=== PATIENT | female | born 1935 | race Caucasian/White ===

== ENCOUNTER 2018-01-06 17:28 | Inpatient (IN) | payer MEDICARE, OTHER ==
[~2018-01-06] VITALS: Ht 154.9 cm; Wt 59.9 kg
[~2018-01-06 17:28] MED LIST: ALTACE10 MG PO; ANTIVERT25 MG PO; APAP500 PO; ARTIFICIAL TEAR15 M1 OPHTHALMIC; ASPERCREME 1141.7 GM TP; ASPERCREME1 EACH TOP; ASPIR 8181 MG PO; ATIVAN0.5 MG PO; B12INJ IM; BIOFREEZE118 ML TOP; BIOFREEZE118 ML TP; BISACODYL SUPP10 MG RECTAL; CIPRO250 M1 PO; COREG3.125 MG PO; DEXAMETHASONE 0.5 M1 OP; DOK100 MG PO; IRON325 PO; KEFLEX500 M1 PO; LEXAPRO 10 MG T10 M1 PO; LIPITOR 20 MG T20 M1 PO; MAGOX 400400 MG PO; MAPAP325 MG PO; MAPAP500 MG PO; MECLIZINE HCL12.5 MG PO; MUCINEX600 MG PO; NAMENDA 5 MG TAB5 M1 PO; NEURONTIN 300300 M1 PO; NORCO 5-325 TA1 EACH PO; OMEPRAZOLE 20 M20 M1 PO; ONDANSETRON HCL4 M2 PO; OXYBUTYNIN 5 MG5 M2 PO; OYSTER SHELL 51 EACH PO; OYSTER SHELL C1 EA14 PO; PLAVIX 75 MG TA75 M1 PO; PREDNISONE 5 MG5 M1 PO; PROTONIX40 M1 PO; RAMIPRIL2.5 MG PO; RESTASIS1 EACH OPHTHALMIC; TUMS PO; VENTOLIN HFA 1818 GM INH; VITAMIN D5000 UNIT PO; ZANTAC 150MG T150 MG PO; ZOFRAN ODT4 MG PO
[2018-01-06 17:58] LABS: HEMATOCRIT 31.9 % (37.0-47.0); HEMOGLOBIN 9.8 gm/dL (12.0-15.0); MCH 26.1 pg (26.0-34.0); MCHC 30.6 g/dL (28.0-37.0); MCV 85.3 fL (80.0-100.0); MPV 8.3 fl. (7.2-11.1); NUCLEATED RBCS 0 /100WBC; PLATELET COUNT* 292 thou/uL (150-400); RBC 3.73 mil/uL (4.20-5.00); RDW-CV 19.3 % (10.5-14.5); WBC 9.6 thou/uL (4.0-11.0)
[2018-01-06 18:04] LABS: ANION GAP 2 mmol/L (7-16); BUN 38 mg/dL (7-18); CALCIUM 10.4 mg/dL (8.5-10.1); CHLORIDE 103 mmol/L (98-107); CO2 35 mmol/L (21-32); CREATININE 0.7 mg/dL (0.6-1.3); GLUCOSE 96 mg/dL (70-99); POTASSIUM 4.5 mmol/L (3.5-5.1); SODIUM 140 mmol/L (136-145)
[2018-01-06 18:07] LABS: APTT 28.5 Seconds (25.0-31.3); PROTIME 10.2 Seconds (9.20-11.50)
[2018-01-06 18:11] LABS: ALBUMIN 2.5 g/dL (3.4-5.0); ALKALINE PHOSPHATASE 71 U/L (46-116); SGOT 19 U/L (15-37); SGPT 23 U/L (30-65); TOTAL BILIRUBIN 0.2 mg/dL (<0.1-1.0); TOTAL PROTEIN 7.1 g/dL (6.4-8.2); TROPONIN-I LEVEL <0.06 ng/mL (<0.06)
[2018-01-06 18:32] LABS: ABSOLUTE EOSINOPHILS 0.1 thou/uL (0.0-0.7); ABSOLUTE LYMPHOCYTES 0.9 thou/uL (0.8-5.3); ABSOLUTE MONOCYTES 0.7 thou/uL (0.0-1.2)
[2018-01-06 18:34] LABS: ANISOCYTOSIS 1+; MICROCYTES Occasional; PLATELET ESTIMATE ADEQUATE
[2018-01-06 18:44] LABS: POC CA IONIZED 5.4 mg/dL (4.5-5.3); POC CREATININE 0.7 mg/dL (0.6-1.3); POC HEMOGLOBIN 10.5 g/dL (12.0-17.0); POC POTASSIUM 4.5 mmol/L (3.5-4.9)
[2018-01-06] MEDS ORDERED: MELATONIN3 MG PO (19:08)
[2018-01-06] MEDS ORDERED: IBUPROFEN 200200 M1 PO (19:09)
[2018-01-06] MEDS ORDERED: GAVILAX8.5 GM (19:09)
[2018-01-06] MEDS ORDERED: ARTIFICIAL TEA1 EACH OPHTHALMIC (19:09)
[2018-01-06] MEDS ORDERED: ONDANSETRON HCL4 M2 PO (19:09)
[2018-01-06] MEDS ORDERED: ENSURE PLUS237 ML PO (19:10)
[2018-01-06] MEDS ORDERED: JUVEN PACKET1 EAC1 PO (19:10)
[2018-01-06] MEDS ORDERED: IRON325 M1 PO (19:10)
[2018-01-06 20:50] VITALS: BP 128/65
[2018-01-06] MEDS ORDERED: CENTRUM SILVER1 EAC4 PO (22:08)
[2018-01-06 22:22] VITALS: BP 133/55
[2018-01-07] VITALS: BP 141/69
[2018-01-07 04:00] VITALS: BP 129/54
[2018-01-07 07:21] LABS: URINE BILIRUBIN NEGATIVE (Negative); URINE BLOOD 3+ (Negative); URINE CLARITY CLEAR; URINE COLOR YELLOW; URINE GLUCOSE-RANDOM NEGATIVE (Negative); URINE KETONES NEGATIVE (Negative); URINE LEUKOCYTES 2+ (Negative); URINE NITRITE POSITIVE (Negative); URINE PROTEIN TRACE (Negative); URINE SPECIFIC GRAVITY <= 1.005 (1.005-1.030); URINE UROBILINOGEN 0.2 E.U./dl (0.2-1.0)
[2018-01-07 07:34] LABS: SQUAMOUS 0-3 Few /LPF (0-3)
[2018-01-07 07:35] LABS: BACTERIA >30 Many /HPF (None Seen); CASTS None Seen /LPF (None Seen); CRYSTALS None Seen /LPF (None Seen); MUCUS 0-3 Light strn/LPF (None Seen); URINE WBC 6-15 Few /HPF (0-5)
[2018-01-07 07:36] LABS: URINE RBC 3-10 Few /HPF (0-2)
[2018-01-07 08:30] VITALS: BP 163/58
--- NOTE | 2018-01-07 10:26 | EKG ---
[place] [address] ELECTROCARDIOGRAM REPORT Name: MITUL PLAZA Room: [address] IN [facility].#: [id number] Admission: 01/06/18 Attend Phys: Moo Redd MD Discharge: Date of : 37 Report #: [id number] THIS REPORT FOR: //name// [facility] ED Test Date: 2018-01-06 Test Time: 18:31:03 Pat Name: MITUL PLAZA Department: Room: Gender: Adjustment Examiner: [place] : 1935 Requested By: Morales Turner Order Number: [id number] MD: Odell Arenas Measurements Intervals [place] Rate: 82 P: 47 CA: 144 QRS: -33 QRSD: 98 T: -24 QT: 384 QTc: 449 Interpretive Statements Sinus rhythm poor r wave progression Inferior infarct, old Baseline wander in lead(s) V2 Compared to ECG 05/23/2017 22:00:41 no change Electronically Signed On 01-07-2018 10:26:02 CDT by Odell Arenas [email or web address] <ELECTRONICALLY SIGNED> By: Odell Arenas MD, [facility] 01/07/18 1026 1831 1831 Odell Arenas MD, [facility] /EPI
[2018-01-07 12:05] VITALS: BP 139/55
[2018-01-07 16:34] VITALS: BP 124/68
[2018-01-07 20:00] VITALS: BP 133/67
[2018-01-08] VITALS: BP 121/64
[2018-01-08 04:00] VITALS: BP 153/52
[2018-01-08 05:04] LABS: HEMATOCRIT 28.4 % (37.0-47.0); HEMOGLOBIN 8.9 gm/dL (12.0-15.0); MCH 26.8 pg (26.0-34.0); MCHC 31.2 g/dL (28.0-37.0); MCV 85.8 fL (80.0-100.0); MPV 8.4 fl. (7.2-11.1); RBC 3.31 mil/uL (4.20-5.00); RDW-CV 19.1 % (10.5-14.5)
[2018-01-08 05:27] LABS: ALBUMIN 2.2 g/dL (3.4-5.0); CALCIUM 8.6 mg/dL (8.5-10.1); CREATININE 0.5 mg/dL (0.6-1.3); MAGNESIUM 1.8 mg/dL (1.8-2.4); POTASSIUM 3.7 mmol/L (3.5-5.1); TOTAL BILIRUBIN 0.2 mg/dL (<0.1-1.0); TOTAL PROTEIN 5.6 g/dL (6.4-8.2)
[2018-01-08 09:30] VITALS: BP 114/50
[2018-01-08 12:00] VITALS: BP 110/42
[2018-01-08 15:44] VITALS: BP 142/52
[2018-01-08 20:00] VITALS: BP 90/30
[2018-01-09] VITALS (9 sets, daily range): BP systolic 117–163; BP diastolic 39–78
[2018-01-09 05:12] LABS: HEMATOCRIT 28.8 % (37.0-47.0); HEMOGLOBIN 8.8 gm/dL (12.0-15.0); MCH 26.5 pg (26.0-34.0); MCHC 30.6 g/dL (28.0-37.0); MCV 86.8 fL (80.0-100.0); MPV 8.2 fl. (7.2-11.1); RBC 3.32 mil/uL (4.20-5.00); RDW-CV 19.3 % (10.5-14.5); WBC 4.9 thou/uL (4.0-11.0)
[2018-01-09 05:57] LABS: CALCIUM 9.1 mg/dL (8.5-10.1); CREATININE 0.4 mg/dL (0.6-1.3); MAGNESIUM 2.1 mg/dL (1.8-2.4); POTASSIUM 3.6 mmol/L (3.5-5.1)
[2018-01-09 11:36] LABS: CHOLESTEROL 159 mg/dL (<200); HDL CHOLESTEROL 38 mg/dL (>40); LDL CHOLESTEROL 106 mg/dL (<100); TC:HDL 4.2 Ratio (Not establshd); TRIGLYCERIDE 78 mg/dL (<150); VLDL 16 mg/dL (<40)
[2018-01-09 11:37] LABS: SERUM ASSESSMENT Clear
[2018-01-09 20:25] LABS: % SATURATION 13 % (20-39); IRON 26 ug/dL (50-175)
[2018-01-10] VITALS (7 sets, daily range): BP systolic 106–163; BP diastolic 50–74
--- NOTE | 2018-01-10 09:40 | EEG ---
[address] [address] EEG STUDY REPORT Name: MIGUEL PLAZASOHEILA Worley Room: [address] IN .R.#: [id number] Admission: 01/06/18 Attend Phys: Moo Redd MD Discharge: Date of : 37 Report #: [id number] THIS REPORT FOR: //name// CC: Moo Redd [facility] physician/PCP DATE OF SERVICE: 01/07/2018 This patient is being evaluated for stroke-like symptoms as well as a facial tremor. EEG was done by placing the electrodes by standard 10-20 system of electrode placement. Both referential and sequential montages were used for recording. Background activity in this patient's EEG is about 7 Hz and 30 microvolt. It is a symmetrical activity. The patient went to sleep that is associated with bilaterally symmetrical sleep spindle and vertex sharp waves. Throughout the record, no active epileptiform activity was noticed. IMPRESSION: This is a moderately abnormal EEG because it is disorganized and poorly formed. That is a nonspecific abnormality, which can occur with dementia, encephalopathy, effect of psychotropic medication, etc. Clinical correlation is recommended. <ELECTRONICALLY SIGNED> By: Tim Mcnamara MD 01/10/18 0940 0828 1622Pafia Mcnamara MD /nt
--- NOTE | 2018-01-10 09:40 | CON ---
[address] [address] CONSULTATION Name: MITUL PLAZA Room: [address] IN [facility].[place].#: [id number] Admission: 01/06/18 Attend Phys: Moo Redd MD Discharge: Date of : 37 Report #: [id number] THIS REPORT FOR: //name// CC: Moo Redd [facility] physician/PCP DATE OF SERVICE: 01/06/2018 HISTORY OF PRESENT ILLNESS: This is an 82-year-old female patient who was seen by me as a stroke protocol. I talked to Dr. Turner, our Emergency Room physician, who originally called me and I subsequently talked to Dr. Rubio, who took over this patient. I called the patient's son and had a long talk with him. This patient presented with what they described as stroke-like symptoms. They had initially said that it happened 1 hour prior to admission. The more history I can take, the time of onset is not clear at all in this patient. This is partly because the patient has pretty significant baseline problems. Some of the history indicates that she may have even passed out. REVIEW OF SYSTEMS: Pretty extensive. This patient has dementia. She usually does not know what month and what day it is. She does not look that much different from that perspective. She does not appear to be aphasic. She had multiple falls. She had a back surgery, which gave her footdrop. She was still able to move the right side. She has a pretty deformed right wrist area. She has a history of subarachnoid and intraparenchymal hemorrhage and she was admitted to [facility]. She was not walking even before that, but after the intraparenchymal hemorrhage and subarachnoid hemorrhage and intracerebral hemorrhage, she has not been able to walk and is in a wheelchair according to the son. Even before that she was preferring wheelchair, but they were trying to push her to do some physical therapy. From all indication, it looks like with the dementia and a very difficult time ambulating, her quality of the life is very poor. A 14-point review of system was carried out as much as I could and it is summarized as above. PAST MEDICAL HISTORY: Positive for intracerebral bleed and subarachnoid hemorrhage. FAMILY HISTORY: Negative for any intracranial hemorrhage. SOCIAL HISTORY: She lives in a jail. PHYSICAL EXAMINATION: Indicates she is alert. She is responsive. She can follow simple commands most of the time. I do not think she is markedly aphasic. Cranial nerve examination 2-12 may indicate some facial weakness on the right side. She can still move some. She is weak in the right upper and right lower extremity, but she is to some extent weak in all 4 extremities. I could not do the sensory system examination. [place] [address] CONSULTATION Name: MITUL PLAZA Room: [address] IN [facility]#: [id number] Admission: 01/06/18 Attend Phys: Moo Redd MD Discharge: Date of : 37 Report #: [id number]. Cardiac and respiratory examinations appear noncontributory. LABORATORY DATA: I reviewed this patient's workup, which was done. She had a CT angio done, which demonstrated pretty significant carotid stenosis on both sides. Her calcium was high the last time and it is high now. There was some suspicion of renal cell carcinoma in this patient. IMPRESSION: This patient's symptoms are suggestive of stroke in the left cerebral hemisphere with a severe carotid disease, very poor quality of the life, and pretty significant dementia and severe ambulation difficulty. She had a previous history of intracranial hemorrhage. I talked to the son in great detail. I talked to him the option. We discussed tPA. Intracranial hemorrhage is a lifetime contraindication for giving tPA. It is tough to tell whether this patient's hemorrhage was because of trauma or anything like amyloid angiopathy. Still I gave that option to them. We also talked about the management of the carotid stenosis, which is going to be difficult because she will require surgeries on both sides. After discussing all of it with the patient's son, the aim was to just be very conservative and carry out only very conservative and comfort care in this patient. I asked the Emergency Room physician to give this patient some fluids and give an aspirin. Otherwise, no heroic measures will be done in this patient. More than 50 minutes of time was spent taking care of this patient today and majority of that time was spent counseling the family and coordinating her care. <ELECTRONICALLY SIGNED> By: Tim Mcnamara MD 01/10/1840 20 45Tim Mcnamara MD /alpa
[2018-01-11] VITALS (7 sets, daily range): BP systolic 106–152; BP diastolic 45–76
[2018-01-11 14:20] LABS: HEMATOCRIT 30.2 % (37.0-47.0); HEMOGLOBIN 9.4 gm/dL (12.0-15.0); MCH 26.4 pg (26.0-34.0); MCHC 31.2 g/dL (28.0-37.0); MCV 84.7 fL (80.0-100.0); MPV 7.5 fl. (7.2-11.1); RBC 3.57 mil/uL (4.20-5.00); RDW-CV 19.4 % (10.5-14.5); WBC 6.4 thou/uL (4.0-11.0)
[2018-01-11] MEDS ORDERED: CELEXA10 MG PO (16:06)
[2018-01-11] MEDS ORDERED: MAPAP325 MG PO (16:10)
[2018-01-11] MEDS ORDERED: MIRALAX17 GM PO (16:11)
[2018-01-11] MEDS ORDERED: PLAVIX 75 MG TA75 MG PO (16:12)
[2018-01-11] MEDS ORDERED: VENTOLIN HFA 1818 GM INH (16:16)
[2018-01-11] MEDS ORDERED: KEFLEX500 M1 PO (16:24)
--- NOTE | 2018-01-18 16:59 | CON ---
[address] [address] CONSULTATION Name: MITUL PLAZA Room: [address] IN .R.#: [id number] Admission: 01/06/18 Attend Phys: Moo Redd MD Discharge: 01/11/18 Date of : 37 Report #: [id number] THIS REPORT FOR: //name// CC: Moo Redd [facility] physician/PCP DICTATED BY: Sandra TORRES DATE OF SERVICE: 01/10/2018 Please note at the time of this dictation, the patient was seen and physically examined by myself. REASON FOR CONSULTATION: Anemia. HISTORY OF PRESENT ILLNESS: This is an 82-year-old female who presented to the Emergency Room after they noted at the nursing facility that she had some right-sided facial droop for about 1 hour and that she did have some right-sided weakness of her upper and lower extremity and was leaning to one side. The patient was noted to have possible stroke and was fully admitted. At the time of admission, the patient's hemoglobin was 9.8. At the time of this consultation, the patient's hemoglobin is 8.8. In talking to the patient, she states she has been anemic all of her life. Her last endoscopy studies were back in [place], [place] which has been several years ago she states. She denies any nausea, vomiting, abdominal pain or any overt bleeding that has been noted. She states her bowels move about every other day. They are soft and formed. There is no bright red blood or any melena noted. Her weight has been fairly stable. ALLERGIES: TETRACYCLINE, ADHESIVE TAPE, MYELOGRAM, MSG. MEDICATIONS: From home include aspirin, prednisone, Neurontin, Restasis, Antivert, Mag-Ox, omeprazole, vitamin D, Tums, docusate, Namenda, Lexapro, Ventolin, melatonin, MiraLax, Advil, Zofran, dextran, iron supplement. PAST MEDICAL HISTORY: Subarachnoid hemorrhage in 2017, hypertension, GERD, hyperlipidemia, neuralgia. PAST SURGICAL HISTORY: Negative. FAMILY HISTORY: Noncontributory. SOCIAL HISTORY: The patient is a resident at [facility]. REVIEW OF SYSTEMS: Twelve-point review [place] [address] CONSULTATION Name: MELAMITUL J Room: [address]#: [id number] Admission: 01/06/18 Attend Phys: Moo Redd MD Discharge: 01/11/18 Date of : 37 Report #: [id number] except what is mentioned in the HPI. PHYSICAL EXAMINATION: VITAL SIGNS: Temperature 37, pulse 76, respirations 16, blood pressure 127/55. HEART: Regular rate and rhythm. NEUROLOGY: It was felt by Neurology that she likely had a left cerebral hemispheric stroke and that has severe carotid disease with also significant dementia as well. LABORATORY DATA: Hemoglobin now 8.8, hematocrit 28.8, white count is 4.9, platelets 186, MCV is 86.8. Sodium 144, potassium 3.6, chloride 111, CO2 of 29, BUN is 13, creatinine 0.4, GFR is 153 and a glucose of 82. IMPRESSION: 1. Anemia, asymptomatic; per patient history of anemia "all of her life". 2. Anticoagulant therapy, Plavix and aspirin. 3. Cerebrovascular accident, recent left hemispheric stroke. 4. Dementia. PLAN: 1. We will check a ferritin level. 2. Further recommendations to be made after Dr. Siddiqui has reviewed the patient's chart and ferritin is back. Thank you for allowing us to participate in this patient's care. Please do not hesitate to call with any questions in regard to this consult. ADDENDUM The patient with history of CVA who also has normocytic anemia. There is no evidence of hematochezia or melena. We would recommend upper endoscopy once the patient is outside the stroke window. We will continue the patient's hemoglobin and obtain B12, folic acid and iron study. We will replace these if they are low. <ELECTRONICALLY SIGNED> By: Bolivar Siddiqui MD 01/18/18 1659 1433 1841Bolivar Siddiqui MD /nt
== END 2018-01-11 18:55 | DRG 64 ==
LOC: M.ERS 17:28 → M.2W 19:43 → M.TBA-ER 19:43 → M.2W 20:54
PROVIDERS: Emergency Medicine Emergency Medical Services; Family Medicine; Nurse Practitioner Adult Health; Psychiatry & Neurology Neuromuscular Medicine; ADMIT Internal Medicine
DX: I63.231 Cerebral infarction due to unspecified occlusion or stenosis of right carotid arteries (principal); R53.2 Functional quadriplegia; E43 Unspecified severe protein-calorie malnutrition; K92.2 Gastrointestinal hemorrhage, unspecified; I10 Essential (primary) hypertension; K21.9 Gastro-esophageal reflux disease without esophagitis; E78.5 Hyperlipidemia, unspecified; D64.9 Anemia, unspecified; F03.90 Unspecified dementia, unspecified severity, without behavioral disturbance, psychotic disturbance, mood disturbance, and anxiety; Z66 Do not resuscitate; R29.810 Facial weakness; J84.10 Pulmonary fibrosis, unspecified; Z88.1 Allergy status to other antibiotic agents; Z88.8 Allergy status to other drugs, medicaments and biological substances; Z91.048 Other nonmedicinal substance allergy status; Z79.899 Other long term (current) drug therapy; Z79.82 Long term (current) use of aspirin; Z79.02 Long term (current) use of antithrombotics/antiplatelets

== ENCOUNTER 2018-02-06 01:59 | Inpatient (IN) | payer MEDICARE ==
[~2018-02-06] VITALS: Ht 157.5 cm; Wt 53.5 kg
[~2018-02-06 01:59] MED LIST changes: +ARTIFICIAL TEA1 EACH OPHTHALMIC; +CELEXA10 MG PO; +CENTRUM SILVER1 EAC4 PO; +ENSURE PLUS237 ML PO; +GAVILAX8.5 GM; +IBUPROFEN 200200 M1 PO; +IRON325 M1 PO; +JUVEN PACKET1 EAC1 PO; +MELATONIN3 MG PO; +MIRALAX17 GM PO; +PLAVIX 75 MG TA75 MG PO
[2018-02-06 02:35] VITALS: BP 97/58
[2018-02-06 02:35] LABS: ABSOLUTE BASOPHILS 0.1 thou/uL (0.0-0.2); ABSOLUTE EOSINOPHILS 0.2 thou/uL (0.0-0.7); ABSOLUTE LYMPHOCYTES 1.2 thou/uL (0.8-5.3); ABSOLUTE MONOCYTES 0.8 thou/uL (0.0-1.2); BASOPHILS 0.6 %; EOSINOPHILS 2.8 %; HEMATOCRIT 25.4 % (37.0-47.0); HEMOGLOBIN 7.9 gm/dL (12.0-15.0); LYMPHOCYTES 14.1 %; MCH 26.6 pg (26.0-34.0); MCV 85.7 fL (80.0-100.0); MONOCYTES 9.9 %; MPV 7.3 fl. (7.2-11.1); NUCLEATED RBCS 0 /100WBC; PLATELET COUNT* 235 thou/uL (150-400); POLYS 72.6 %; RBC 2.96 mil/uL (4.20-5.00); RDW-CV 19.3 % (10.5-14.5); WBC 8.3 thou/uL (4.0-11.0)
[2018-02-06 02:40] LABS: INR 1.1; PROTIME 10.4 Seconds (9.20-11.50)
[2018-02-06 02:45] LABS: CALCIUM 9.1 mg/dL (8.5-10.1); CREATININE 0.6 mg/dL (0.6-1.3); POTASSIUM 3.8 mmol/L (3.5-5.1)
[2018-02-06 02:46] LABS: ALBUMIN 2.1 g/dL (3.4-5.0); TOTAL BILIRUBIN 0.2 mg/dL (<0.1-1.0); TOTAL PROTEIN 5.9 g/dL (6.4-8.2)
[2018-02-06 02:55] LABS: URINE BLOOD 3+ (Negative); URINE CLARITY TURBID; URINE COLOR BROWN
[2018-02-06 02:57] LABS: URINE NITRITE-REFLEX POSITIVE (Negative)
[2018-02-06 03:02] LABS: URINE REDUCING SUBSTANCE NEGATIVE (Negative)
[2018-02-06 03:04] LABS: ICTOTEST (BILI CONFIRMATORY) Negative (Negative)
[2018-02-06 03:05] LABS: URINE PROTEIN 3+ (Negative)
[2018-02-06 03:06] LABS: FINE GRANULAR CASTS 4-10 Moderate /LPF (None Seen); SQUAMOUS 0-3 Few /LPF (0-3)
[2018-02-06 03:07] LABS: BACTERIA-REFLEX >30 Many /HPF (None Seen); URINE RBC >20 Many /HPF (0-2); URINE WBC-REFLEX 6-15 Few /HPF (0-5)
[2018-02-06 03:08] LABS: AMORPHOUS URATES Many /LPF (None Seen)
--- NOTE | 2018-02-06 03:20 | NUR ---
BLADDER IRRIGATION NOT RUNNING. PATIENT WITH FLUID RUNNING AROUND MEATUS. [address] POSADA IRRIGATED BY HAND WITH 1000 ML TO DISLODGE CLOTS
[2018-02-06 06:00] VITALS: BP 149/84
[2018-02-06 06:51] VITALS: BP 126/54
--- NOTE | 2018-02-06 07:11 | NUR ---
PATIENT ARRIVED FROM ER ALERT BUT CONFUSED. BED ALARM ON. ASSESSMENT CHARTED.
[2018-02-06 07:46] LABS: HEMOGLOBIN 7.7 gm/dL (12.0-15.0)
[2018-02-06 08:05] VITALS: BP 117/70
[2018-02-06 15:31] VITALS: BP 131/44
--- NOTE | 2018-02-06 19:50 | NUR ---
PATIENT REMAINED ALERT AND ORIENTED TO SELF. VERY CONFUSED, ASKED MULTIPLE TIMES WHERE SHE WAS AND WHAT HAD HAPPENED. PATIENT ALSO ASKED SEVERAL TIMES ABOUT FAMILY KNOWING SHE IS HERE EVEN AFTER FAMILY CAME TO VISIT. CBI CONTINUED. WENT THROUGH 3 BAGS OF FLUIDS PLUS MANUAL IRRIGATION Q.2. URINE WENT FROM BRIGHT RED TO CLEAR THROUGHOUT SHIFT. CLEAR LIQUIDS, PATIENT ATE MAYBE 2 BITES TOTAL TODAY. NO NAUSEA AND VOMITING. PATIENT DENIED PAIN THROUGHOUT SHIFT. IV CLEAN, FLUIDS INFUSING. COMPLETED HOURLY ROUNDING. CALL LIGHT WITHIN REACH. WILL CONTINUE TO MONITOR.
[2018-02-06 20:45] VITALS: BP 113/59
[2018-02-07 00:32] VITALS: BP 124/67
[2018-02-07 04:24] LABS: HEMATOCRIT 24.1 % (37.0-47.0); HEMOGLOBIN 7.3 gm/dL (12.0-15.0); MCH 26.4 pg (26.0-34.0); MCHC 30.3 g/dL (28.0-37.0); MCV 87.3 fL (80.0-100.0); RBC 2.76 mil/uL (4.20-5.00); RDW-CV 19.2 % (10.5-14.5); WBC 5.4 thou/uL (4.0-11.0)
[2018-02-07 04:28] VITALS: BP 115/94
[2018-02-07 04:55] LABS: CALCIUM 8.4 mg/dL (8.5-10.1); CREATININE 0.5 mg/dL (0.6-1.3); MAGNESIUM 1.7 mg/dL (1.8-2.4); POTASSIUM 3.7 mmol/L (3.5-5.1)
--- NOTE | 2018-02-07 05:24 | NUR ---
ALERT TO SELF ONLY. FREQUENTLY ASK WHERE SHE IS AND WHAT IS GOING ON. NO C/O PAIN OR NAUSEA. CONTINUES TO HAVE CBI RUNNING AT SLOW RATE WITH URINE SLIGHTLY PINK TINGED. NO CLOTS NOTED AT THIS TIME. IVF INFUSING WITHOUT DIFFICULTY. REMAINS ON BEDREST AT THIS TIME. BED ALARM ON. CALL LIGHT WITHIN REACH.
[2018-02-07 08:30] VITALS: BP 125/56
--- NOTE | 2018-02-07 11:35 | NUR ---
ASSUMED PT CARE AT 0730, FULL ASSESMENT DONE CHARTED. PT ALERT TO SELF ONLY, IS VERY FORGETFUL BUT PLEASANT. SHE C/O PAIN ALL OVER, TYLENOL GIVEN. PT HAS POSADA IN PLACE DRAINING CLEAR YELLOW URINE. DR JARA ORDERED FOR CONTINUOUS IRRIGATION TO STOP AND IRRIGATE ONCE PER SHIFT. PT ABLE TO TOLERATED REGULAR DIET. SPOKE TO PTS SON, UPDATED ON PLAN OF CARE. WOUND CARE CONSULT PLACED FOR COCCYX WOUND. PT TURNED Q2 HRS, FALL PRECAUTIONS IN PLACE, CALL LIGHT IN REACH. WILL CONTINUE WITH PLAN OF CARE.
[2018-02-07] MEDS ORDERED: BACTRIM DS TAB1 EACH PO (13:57)
--- NOTE | 2018-02-07 15:28 | NUR ---
WOUND NURSE: PATIENT SEEN FOR COCCYGEAL STAGE 2 PRESSURE ULCER. AFFECTED AREA MEASURES 1.0 X 1.0 X 0.2 CM. WOUND BED CONTAINS PINK NONGRANULATING TISSUE AND SCANT AMOUNT OF SEROUS DRAINAGE. BORDERED FOAM DRESSING PLACED OVER WOUND. PLAN TO CHANGE BORDERED FOAM EVERY 3 DAYS UNTIL RESOLVED.
--- NOTE | 2018-02-07 15:43 | NUR ---
PT.HAS DISCHARGE ORDERS TO RETURN TO LTC AT [facility] TODAY IF CT ABD/PELVIS IS NEGATIVE. NOTIFIED HOLLI/SERGEY. TOLD HER PT.HAS P.T.ORDERS BUT WOULD NOT HAVE 3 [place] STAY SHE JUST CAME IN YESTERDAY. SHE SAID THEY CAN BILL HER PART B FOR THERAPIES. WILL AWAIT CT RESULTS. CHRISTINA DEWEY AWARE AND WILL FAX DISCHARGE ORDERS AND H&P TO HOLL[facility]. CHART IS COPIED. MACO WILL ALSO CALL REPORT TO [facility] AND NOTIFY SON.
[2018-02-07 15:59] VITALS: BP 131/60
[2018-02-07 17:48] VITALS: BP 131/60
--- NOTE | 2018-02-07 19:05 | NUR ---
RECIEVED DISCHARGE ORDERS FROM DR LUA, SPOKE TO DR JARA AFTER CT DONE, HE IS OK WITH DISCHARGE TODAY, SPOKE TO PTS SON TO EDUCATE ON DISCHARGE. FAXED ORDERS TO Martín, SPOKE TO JOHN THE RN AND GAVE REPORT. POSADA IN PLACE AT DISCHARGE PER DR JARA. PT DISCHARGED WITH TRANSPORTATION AT APPROX 1905
== END 2018-02-07 19:05 | DRG 690 ==
LOC: M.ERS 01:59 → M.TBA-ER 05:08 → M.ORTHSURG 05:08
PROVIDERS: Emergency Medicine; Internal Medicine; ADMIT Family Medicine
DX: N30.91 Cystitis, unspecified with hematuria (principal); D62 Acute posthemorrhagic anemia; E44.0 Moderate protein-calorie malnutrition; F03.90 Unspecified dementia, unspecified severity, without behavioral disturbance, psychotic disturbance, mood disturbance, and anxiety; Z86.73 Personal history of transient ischemic attack (TIA), and cerebral infarction without residual deficits; Z88.1 Allergy status to other antibiotic agents; Z88.8 Allergy status to other drugs, medicaments and biological substances; Z87.891 Personal history of nicotine dependence; Z82.49 Family history of ischemic heart disease and other diseases of the circulatory system; Z79.82 Long term (current) use of aspirin; Z79.899 Other long term (current) drug therapy

== ENCOUNTER 2018-05-13 09:12 | Inpatient (IN) | payer MEDICARE, OTHER ==
[~2018-05-13] VITALS: Ht 165.1 cm; Wt 65.8 kg
[2018-05-13] VITALS (23 sets, daily range): BP systolic 53–164; BP diastolic 12–112
--- NOTE | ~2018-05-13 | CON ---
[address] [address] CONSULTATION Name: MITUL PLAZA Room: [address] IN M.R.#: [id number] Admission: 05/13/18 Attend Phys: Moo Redd MD Discharge: Date of : 36 Report #: [id number] THIS REPORT FOR: //name// CC[facility] The patient is in ICU bed 6. I am asked to see this 82-year-old woman at the request of Dr. Redd for acute kidney injury. CHIEF COMPLAINT: Mental status changes. HISTORY OF PRESENT ILLNESS: This elderly woman resides in a care home. She does have dementia. She is not able to provide me history. She was extremely hypotensive on arrival, and she had an elevated lactic acid. She has had some rapid respirations. She was assessed in the ED, a central line was placed. Her troponin was checked and was elevated. She has evidence of acute kidney injury and appears septic and was therefore admitted to the Intensive Care Unit. Brand catheter has just been placed. She has a very purulent urine. She is going to have an ART line placed. PAST MEDICAL HISTORY: She has had no record of prior acute renal failure. Creatinine has generally always been normal. She has had a CVA. She has some dementia. She has a history of hypercalcemia, hematuria, hypotension, UTI. She has had residual speech problems since her CVA. She has had ataxia, falls, anemia, GERD, hemiplegia and hemiparesis. FAMILY HISTORY: Not known. SOCIAL HISTORY: She is a former tobacco user. She stopped several years ago. Alcohol is not known as to whether she had any past usage at all. No recreational drug use is recorded anywhere. ALLERGIES: MYELOGRAM, PENICILLIN, TETRACYCLINE, ADHESIVE TAPE AND MSG. HOME MEDICATIONS: Included multiple meds, prednisone 5 mg daily, gabapentin 300 mg q.i.d., cyclosporine 1 drop b.i.d., magnesium oxide 400 mg daily, cholecalciferol vitamin D3 of 5000 units daily, calcium carbonate 500 mg daily, memantine 5 mg b.i.d. Dextran artificial tears ophthalmologic ally b.i.d., ferrous sulfate 325 mg daily, multivitamins with minerals 1 daily, citalopram 10 mg daily, acetaminophen 1-2 tablets q.4 p.r.n., polyethylene glycol 17 grams daily p.r.n., albuterol inhaler q.4 hours p.r.n., pantoprazole 40 mg daily, ascorbic acid 500 mg b.i.d., sennosides 8.6 mg b.i.d., aspirin 81 mg daily, meclizine 25 mg 1/2 p.r.n. dizziness, albuterol sulfate q.8 p.r.n. shortness of air, melatonin 3 mg at bedtime, ondansetron 4 mg q.4 p.r.n., ibuprofen [address] [place] [address] CONSULTATION Name: MITUL PLAZA Room: [address]#: [id number] Admission: 05/13/18 Attend Phys: Moo Redd MD Discharge: Date of : 36 Report #: [id number] q.8 p.r.n. for pain. Andrew packet daily, lactose-free food, with Ensure Plus 1 can q.i.d., clopidogrel 75 mg daily. REVIEW OF SYSTEMS: Not obtainable. PHYSICAL EXAMINATION: GENERAL: She is speaking, but is not tracking or able to answer questions and is speaking with someone not present. VITAL SIGNS: Show a temperature of 36.8, heart rate is 88-100, respirations 16. Blood pressure has been quite low, it was as low as 67/40 earlier, then came up to 102/67 and 53/23. She was certainly awake and appeared to have a higher BP than 53 systolic. O2 sat 2 liters O2 nasal cannula was 98%. HEENT: Atraumatic, normocephalic. NECK: Supple. CHEST: Shows diminished breath sounds, but what I hear is clear. HEART: S1, S2, no rubs. ABDOMEN: Soft, positive bowel sounds. A Brand catheter was placed. She has some turbid appearing urine, but she is draining about 50 mL so far. EXTREMITIES: No edema. Negative Homans. She has 1+ femoral pulses distally. Extremities are still perfused and warm. NEUROLOGIC: Cranial nerves, sensory, motor do not show any focal findings. LABORATORY DATA: Shows a white count of 14,800, up from 2400 earlier. Hemoglobin 7.4, down from 9.9. Hematocrit 24.5, down from 32.6. Platelets 121,000. Coags show a PT of 13.5, INR 1.3. PTT 41.1, fibrinogen 285. Urine is positive for protein, blood, 3+, leukocyte esterase and 10-30 wbc's. Culture is sent and pending. Blood gas showed a pH of 7.32, pCO2 of 35.2, pO2 of 84. This was on 2 liters O2 nasal cannula. Her sodium is 143, potassium 4.4, chloride 107, CO2 of 24, BUN and creatinine 48 and 2.5, glucose 83, calcium 8.8. Liver function studies are not increased. CK is 258. Troponin 0.07, albumin 2.0. IMAGING STUDIES: Included chest x-ray that showed right IJ catheter, no acute cardiopulmonary process noted on initial chest x-ray. IMPRESSION: 1. Acute kidney injury in the setting of hypotension and clinical urosepsis. 2. Septic shock. 3. Profound hypotension. 4. Dementia. 5. Cerebrovascular accident history with residual speech deficits. 6. Ataxia. 7. Weakness. 8. Anemia. 9. Gastroesophageal reflux disease. 10. History of hemiplegia [place] [address] CONSULTATION Name: MITUL PLAZA Room: [address] IN [facility].#: [id number] Admission: 05/13/18 Attend Phys: Moo Redd MD Discharge: Date of : 36 Report #: [id number] PLAN: The patient is receiving vigorous therapy, will be started on pressors, depending on what her blood pressure and vital signs do. She is receiving fluid. She has been cultured. She is receiving antibiotics. I would suspect that her renal function will improve if and when she does improve. She will be followed closely. By: [id number] Wan MD /nt
[~2018-05-13 09:12] MED LIST changes: +BACTRIM DS TAB1 EACH PO
[2018-05-13] MEDS ORDERED: ALBUTEROL2.5 MG/31 INH (09:39)
[2018-05-13] MEDS ORDERED: PROTONIX40 M4 PO (09:41)
[2018-05-13] MEDS ORDERED: SENNA8.6 MG PO (09:42)
[2018-05-13] MEDS ORDERED: VITAMINC500 PO (09:42)
[2018-05-13 10:41] LABS: APTT 34.4 Seconds (25.0-31.3); INR 1.2; PROTIME 11.9 Seconds (9.20-11.50)
--- NOTE | 2018-05-13 11:07 | NUR ---
CONSULTED TO PLACE IJ CENTRAL LINE. CONSENT MEDICAL NECCESSITY PER DR. HOBBS. RIGHT NECK ASSESSED WITH ULTRASOUND. RIGHT IJ IDENTIFIED. USING ULTRASOUND AND MAX BARRIER PRECAUTIONS TRIPLE LUMAN PLACED PER HOSPITAL POLICY. LINE TRIMMED AT 17CM AND ADVANCED TO HUB. STAT CHEST X-RAY ORDERED.
[2018-05-13 11:25] LABS: CALCIUM 8.8 mg/dL (8.5-10.1); CREATININE 2.5 mg/dL (0.6-1.3); POTASSIUM 4.4 mmol/L (3.5-5.1)
[2018-05-13 11:25] LABS: HEMOGLOBIN 9.9 gm/dL (12.0-15.0); MPV 8.3 fl. (7.2-11.1); RBC 3.54 mil/uL (4.20-5.00); WBC 2.4 thou/uL (4.0-11.0)
[2018-05-13 11:27] LABS: HEMATOCRIT 32.6 % (37.0-47.0); MCH 27.9 pg (26.0-34.0); MCHC 30.3 g/dL (28.0-37.0); NUCLEATED RBCS 0 /100WBC; PLATELET COUNT* 136 thou/uL (150-400); RDW-CV 18.1 % (10.5-14.5)
[2018-05-13 11:34] LABS: CK-MB MASS 1.5 ng/mL (<0.5-3.6); TOTAL BILIRUBIN 0.2 mg/dL (<0.1-1.0); TROPONIN-I LEVEL 0.07 ng/mL (<0.06)
[2018-05-13 12:03] LABS: ABSOLUTE LYMPHOCYTES 0.7 thou/uL (0.8-5.3); ABSOLUTE MONOCYTES 0.1 thou/uL (0.0-1.2); ABSOLUTE NEUTROPHILS 1.5 thou/uL (1.6-8.1); PLATELET ESTIMATE ADEQUATE
[2018-05-13 12:04] LABS: ANISOCYTOSIS 1+; POLYCHROMASIA 1+; TARGET CELLS 1+; TEARDROPS Occasional; TOXIC GRANULATION 4+
[2018-05-13 13:36] LABS: BE -7.1 mmol/L (-2 to +3); HCO3 18.1 mmol/L (22.0-26.0); PCO2 35.2 mmHg (35.0-45.0); pH 7.329 (7.340-7.450)
[2018-05-13 13:42] LABS: BASOPHILS 0.2 %; HEMATOCRIT 24.5 % (37.0-47.0); MCH 27.7 pg (26.0-34.0); MCHC 30.4 g/dL (28.0-37.0); MCV 91.1 fL (80.0-100.0); MONOCYTES 0.2 %; MPV 8.5 fl. (7.2-11.1); NUCLEATED RBCS 0 /100WBC; PLATELET COUNT* 121 thou/uL (150-400); POLYS 98.6 %; RBC 2.69 mil/uL (4.20-5.00); RDW-CV 17.4 % (10.5-14.5)
[2018-05-13 13:45] LABS: ABSOLUTE LYMPHOCYTES 0.1 thou/uL (0.8-5.3); ABSOLUTE NEUTROPHILS 14.6 thou/uL (1.6-8.1); HEMOGLOBIN 7.5 gm/dL (12.0-15.0); WBC 14.8 thou/uL (4.0-11.0)
[2018-05-13 13:52] LABS: MAGNESIUM 1.8 mg/dL (1.8-2.4); PHOSPHORUS* 4.4 mg/dL (2.5-4.9)
[2018-05-13 14:23] LABS: APTT 41.1 Seconds (25.0-31.3); INR 1.3; PROTIME 13.5 Seconds (9.20-11.50)
[2018-05-13 14:43] LABS: URINE BILIRUBIN NEGATIVE (Negative); URINE BLOOD TRACE (Negative); URINE CLARITY CLEAR; URINE COLOR YELLOW; URINE GLUCOSE-RANDOM NEGATIVE (Negative); URINE KETONES NEGATIVE (Negative); URINE NITRITE-REFLEX NEGATIVE (Negative); URINE PROTEIN 1+ (Negative); URINE UROBILINOGEN 0.2 E.U./dl (0.2-1.0)
[2018-05-13 14:44] LABS: URINE LEUKOCYTES-REFLEX 3+ (Negative)
[2018-05-13 14:46] LABS: CASTS None Seen /LPF (None Seen); CRYSTALS None Seen /LPF (None Seen); SQUAMOUS 0-3 Few /LPF (0-3); URINE RBC 3-10 Few /HPF (0-2); URINE WBC-REFLEX >25 Many /HPF (0-5)
--- NOTE | 2018-05-13 15:06 | NUR ---
1305 PATIENT RECEIVED PER BED FROM ER. SEE DOCUMENTED ASSESSMENT. PT IS ON SEPSIS PROTOCOL,CONFUSED.MOVES ARMS CONTINUALLY. INCONTINENT OF BOWEL AND BLADDER. TEMPERATURE POSADA PLACED AND ANESTHESIA NOTIFIED OF NEED FOR ARTERIAL LINE. SEEN BY DR GARCIA. UA SENT. BLOOD GLUCOSE LOW AND TREATED.
--- NOTE | 2018-05-13 16:49 | NUR ---
TYLENOL GIVEN FOR ELEVATED TEMPERATURE
--- NOTE | 2018-05-13 17:03 | EKG ---
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1935 Requested By: Morales Turner Order Number: [id number] MD: Odell Arenas Measurements Intervals [place] Rate: 73 P: 53 LA: 139 QRS: -30 QRSD: 101 T: -33 QT: 401 QTc: 442 Interpretive Statements Sinus rhythm Abnormal R-wave progression, early transition Inferior infarct, old Compared to ECG 01/06/2018 18:31:03 Myocardial infarct finding still present Electronically Signed On 05-13-2018 17:03:00 SHEET TESTER by Odell Arenas [email or web address] <ELECTRONICALLY SIGNED> By: Odell Arenas MD, FAC 05/13/18 1703 5 5 Odell Arenas MD, [facility] /EPI
--- NOTE | 2018-05-13 17:19 | NUR ---
PATIENT CHATTERS INCESSANTLY BUT DOES OCCASIONALLY MAKE SENSE. UNABLE TO BE SURE OF ART LINE PRESSURE LEFT ARM WAVES IN AIR CONTINUOUSLY. ALSO MONTIORING CUFF PRESSURE. SEE LEVOPHED TITRATION
--- NOTE | 2018-05-13 18:10 | NUR ---
REVIEWED [facility] WITH PRAKASH/VALENT[facility] AND FELISHA IN [place]
--- NOTE | 2018-05-13 18:10 | NUR ---
PATIENT WITH SOME PROGRESS TOWARDS GOALS. ADMITTED WITH SEVERE SEPSIS. MAINTAINING PRESSURE WITH LEVOPHED DRIP. ARTERIAL LINE AND CVP MONITORING IN PROGRESS. URINE IS FOUL. PATIENT REMAINS CONFUSED AND FAMILY STATES SHE IS ALWAYS CONFUSED WHEN SHE GETS A UTI. REVIEWED PLAN OF CARE AND GOALS WITH FAMILY [facility]. SEEN BY NEPHROLOGY. CARDIOLOGY CONSULT CALLED. FAMILY HAS VISITED
--- NOTE | 2018-05-13 18:16 | 2DMMODE ---
[place] [address] 2 D/M-MODE ECHOCARDIOGRAM Name: MELAMITUL Room: [address] IN M.R.#: [id number] Admission: 05/13/18 Attend Phys: Moo Redd, Discharge: Date of : 37 Date of Service: 05/13/18 1815 Report #: [id number] THIS REPORT FOR: //name// APPROVED REPORT Study performed: 05/13/2018 14:50:17 EXAM: Comprehensive 2D, Doppler, and color-flow Echocardiogram Patient Location: Bedside BSA: 1.60 HR: 93 bpm BP: 53/23 mmHg Other Information Study Quality: Good Indications Hypotension 2D Dimensions IVSd: 12.65 (7-11mm) LVOT Diam: 19.19 (18-24mm) LVDd: 44.09 mm PWd: 10.84 (7-11mm) Ascending Ao: 31.86 (22-36mm) LVDs: 31.00 (25-40mm) Aortic Root: 28.28 mm Volumes Left Atrial Volume (Systole) LA ESV Index: 22.10 mL/m2 Aortic Valve AoV Peak Xavier.: 1.09 m/s AO Peak Gr.: 4.73 mmHg LVOT Max P.10 mmHg AO Mean Gr.: 2.64 mmHg LVOT Mean P.68 mmHg LVOT Max V: 0.88 m/s AO V2 VTI: 15.70 cm LVOT Mean V: 0.59 m/s HARRISON (VTI): 2.35 cm2 LVOT V1 VTI: 12.73 cm Mitral Valve E/A Ratio: 0.64 MV Decel. Time: 252.78 ms MV E Max Xavier.: 0.46 m/s MV PHT: 73.31 ms MVA (PHT): 3.00 [place]2 [place] [address] 2 D/M-MODE ECHOCARDIOGRAM Name: MITUL PLAZA Room: [address] IN ..#: [id number] Admission: 05/13/18 Attend Phys: Moo Redd, Discharge: Date of : 37 Date of Service: 05/13/18 1815 Report #: [id number] TDI E/Lateral E': 4.18 E/Medial E': 4.60 Medial E' Xavier.: 0.10 m/s Lateral E' Xavier.: 0.11 m/s Pulmonary Valve PV Peak Xavier.: 0.80 m/s PV Peak Gr.: 2.56 mmHg Tricuspid Valve RAP Estimate: 5.00 mmHg TR Peak Gr.: 26.86 mmHg RVSP: 31.86 mmHg PA Pressure: 31.86 mmHg Left Ventricle The left ventricle is normal size. There is global hypokinesis. There is normal left ventricular wall thickness. Left ventricular systolic function is mildly decreased. LVEF is 40-45%. Grade I - abnormal relaxation pattern. Right Ventricle Right ventricle is mild to moderately dilated. The right ventricular systolic function is normal. Pacemaker lead is present in the right ventricle. Atria The left atrium size is normal. Right atrium is moderately dilated. Aortic Valve The aortic valve is normal in structure. Trace aortic regurgitation. There is no aortic valvular stenosis. Mitral Valve The mitral valve is normal in structure. Trace mitral regurgitation. No evidence of mitral valve stenosis. Tricuspid Valve The tricuspid valve is normal in structure. Mild tricuspid regurgitation. The RVSP is 25-30 mmHg. Pulmonic Valve The pulmonary valve is normal in structure. There is no pulmonic valvular regurgitation[place] [address] 2 D/M-MODE ECHOCARDIOGRAM Name: MITUL PLAZA Room: [address]#: [id number] Admission: 05/13/18 Attend Phys: Moo Redd, Discharge: Date of : 37 Date of Service: 05/13/18 1815 Report #: [id number] The aortic root is normal in size. IVC is normal in size and collapses >50% with inspiration. Pericardium There is no pericardial effusion. <Conclusion> The left ventricle is normal size. There is normal left ventricular wall thickness. Left ventricular systolic function is mildly decreased. LVEF is 40-45%. Grade I - abnormal relaxation pattern. Pacemaker lead is present in the right ventricle. Right atrium is moderately dilated. Right ventricle is mild to moderately dilated. Trace aortic regurgitation. Trace mitral regurgitation. Mild tricuspid regurgitation. The RVSP is 25-30 mmHg. IVC is normal in size and collapses >50% with inspiration. <ELECTRONICALLY SIGNED> By: Srikanth Carter MD, FACC 05/13/181814 14 14 Srikanth Carter MD, FACC /INF
[2018-05-14] VITALS (72 sets, daily range): BP systolic 76–157; BP diastolic 34–88
--- NOTE | 2018-05-14 00:27 | NUR ---
RECIEVED REPORT AND ASSUMED CARE OF PT AT 1915. PT CONFUSED AND RESTLESS, ORIENTED TO PERSON ONLY. PT FOLLOWS COMMANDS, UNINTELLIGABLE SPEECH. LEVOPHED INFUSING TO MAINTAIN MAP> 65. PT'S FAMILY HERE AT THAT TIME, LEFT EARLY IN SHIFT. PAGED DR LEHMAN AND REPORTED PT'S BLOOD PRESSURE, CVP READING AND TOTAL OF 3 LITERS NS GIVEN DURING DAY SHIFT. REPORTED BICARB DRIP INFUSING AND ORDER TO RUN NORMAL SALINE AT 80ML/HR PER DR GARCIA. ORDERS RECIEVED.
[2018-05-14 05:02] LABS: HEMATOCRIT 29.4 % (37.0-47.0); MCH 27.4 pg (26.0-34.0); MCHC 30.7 g/dL (28.0-37.0); MCV 89.2 fL (80.0-100.0); MPV 8.8 fl. (7.2-11.1); NUCLEATED RBCS 0 /100WBC; PLATELET COUNT* 121 thou/uL (150-400); RBC 3.29 mil/uL (4.20-5.00); RDW-CV 17.2 % (10.5-14.5)
[2018-05-14 05:05] LABS: WBC 40.1 thou/uL (4.0-11.0)
[2018-05-14 05:07] LABS: CALCIUM 8.5 mg/dL (8.5-10.1); CREATININE 2.1 mg/dL (0.6-1.3); POTASSIUM 4.3 mmol/L (3.5-5.1)
[2018-05-14 07:43] LABS: ABSOLUTE MONOCYTES 0.4 thou/uL (0.0-1.2); ABSOLUTE NEUTROPHILS 39.7 thou/uL (1.6-8.1); METAMYELOCYTES 2 %
[2018-05-14 07:45] LABS: PLATELET ESTIMATE DECREASED
[2018-05-14 07:46] LABS: TOXIC GRANULATION 1+
--- NOTE | 2018-05-14 10:23 | NUR ---
9740 ASSUMED CARE OF PATIENT. SEE DOCUMENTED ASSESSMENT. ARTERIAL LINE DAMPS AT TIMES.
--- NOTE | 2018-05-14 10:24 | NUR ---
3260 PATIENT WOULD NOT STOP TALKING WHILE ATTEMPTING PO INTAKE. STARTED CHOKING. ORAL SUCTIONED FOR SMALL AMOUNT OF THICK WHITE SECRETIONS. WILL KEEP NPO UNTIL DR GARCIA AWARE
--- NOTE | 2018-05-14 11:13 | NUR ---
1100 ARTIAL LINE HAD BEEN OOZING AND DAMPED. ART LINE DISCONTINUED PER ORDER DR GARCIA
--- NOTE | 2018-05-14 16:11 | NUR ---
ADDITIONAL MEDICAL HISTORY BROUGHT IN BY SON/DPOA.PLACED IN CHART
--- NOTE | 2018-05-14 17:50 | NUR ---
PATIENT MAKING PROGRESS TOWARDS GOALS. LEVOPHED TITRATED DOWN THOUGH NOT OFF. ARTERIAL LINE DISCONTINUED. URINE OUTPUT ADEQUATE.ORIENTED TO PERSON AND SOMETIMES PLACE. UNABLE TO TOLERATE DIET THIS MORNING. SPEECH THERAPY HAS BEEN CONSULTED. SEEN BY JEREMIAS. FAMILY HAS VISITED.
--- NOTE | 2018-05-14 18:15 | NUR ---
DISIMPACTED OF LARGE AMOUNT FORMED STOOL
[2018-05-15] VITALS (52 sets, daily range): BP systolic 67–142; BP diastolic 36–79
[2018-05-15 04:28] LABS: ABSOLUTE EOSINOPHILS 0.8 thou/uL (0.0-0.7); ABSOLUTE LYMPHOCYTES 0.3 thou/uL (0.8-5.3); ABSOLUTE MONOCYTES 0.6 thou/uL (0.0-1.2); ABSOLUTE NEUTROPHILS 16.1 thou/uL (1.6-8.1); EOSINOPHILS 4.4 %; HEMATOCRIT 26.3 % (37.0-47.0); HEMOGLOBIN 8.1 gm/dL (12.0-15.0); LYMPHOCYTES 1.8 %; MCH 27.5 pg (26.0-34.0); MCV 88.8 fL (80.0-100.0); MONOCYTES 3.6 %; MPV 9.7 fl. (7.2-11.1); NUCLEATED RBCS 0 /100WBC; PLATELET COUNT* 67 thou/uL (150-400); POLYS 90.2 %; RBC 2.96 mil/uL (4.20-5.00); RDW-CV 18.1 % (10.5-14.5)
[2018-05-15 04:45] LABS: ALBUMIN 1.5 g/dL (3.4-5.0); POTASSIUM 3.9 mmol/L (3.5-5.1); TOTAL BILIRUBIN 0.3 mg/dL (<0.1-1.0); TOTAL PROTEIN 5.1 g/dL (6.4-8.2)
--- NOTE | 2018-05-15 05:39 | NUR ---
PT PROGRESSING TOWARD GOALS. PT OFF LEVOPHED DRIP AT 2230. HEART RATE AND BLOOD PRESSURE WITHIN NORMAL LIMITS. O2 SAT > 94% ON O2 AT 2 LITERS . PT CONFUSED BUT FOLLOWS COMMANDS. WILL CONTINUE TO MONITOR CLOSELY.
[2018-05-15 06:44] LABS: WBC 17.8 thou/uL (4.0-11.0)
--- NOTE | 2018-05-15 09:32 | CON ---
[address] [address] CONSULTATION Name: MITUL PATEL Room: [address] IN .R.#: [id number] Admission: 05/13/18 Attend Phys: Moo Redd MD Discharge: Date of : 36 Report #: [id number] THIS REPORT FOR: //name// CC: Moo Olson DATE OF SERVICE: 05/14/2018 CONSULTATION: Infectious diseases HISTORY OF PRESENT ILLNESS: Ms Patel is an 82-year-old [facility] patient who comes to the ER on 05/13 by ambulance because of depressed mental status. In the Emergency Room, she was noted to be hypotensive, measured as low as 67/41 with a lactate of 10. The patient was given a number of antibiotics and admitted to the ICU. This morning, her blood cultures have come back with gram-negative rods in 2/2 sets. Infectious Disease consultation was requested to assist with further evaluation and management. The patient has a history of subarachnoid hemorrhage and stroke. She has some dementia, but normally is conversational. She is being treated for depression. ALLERGIES: SHE HAS A HISTORY OF ALLERGY TO PENICILLIN AND TETRACYCLINE. SOCIAL HISTORY: The patient is and lives in a facility. There is mention of conversations with her son regarding code status. She tells me that she has 2 children and 2 grandchildren, although she is still somewhat confused. There is a past history of tobacco use, but the patient quit many years ago. I have no history of alcohol or drugs. REVIEW OF SYSTEMS: The patient offers no complaints, but she is confused. When queried, she denies head, neck, chest, GI or problems. She specifically denies any frequency or dysuria. PHYSICAL EXAMINATION: GENERAL: The patient appears her stated age, alert, possibly oriented, not in distress. VITAL SIGNS: Show temperature is 102.2 in the ER and it is now down to 100. Blood pressure has come up from 67/41 to 81/43 and now is 118/62. We have been able to wean her Levophed from 20 mcg to 5 mcg and still maintain this blood pressure. SKIN: Pale, but without rash, lesion or exanthem. ENT: Negative. HEART: Sounds are normal. LUNGS: Clear. ABDOMEN: Belly soft and not tender. The patient [place] [address] CONSULTATION Name: MITUL PATEL Meir Room: [address] IN [facility]#: [id number] Admission: 05/13/18 Attend Phys: Moo Redd MD Discharge: Date of : 36 Report #: [id number] understand the initial urine was extremely turbid. Urine is now clear and yellow. EXTREMITIES: Unremarkable. LABORATORY DATA: White count in the ER was 2.4, it is now up to 40.1, hemoglobin was initially 9.9 and then down to 7.5 with hydration and now back up to 9.0 and platelet 121,000. Electrolytes are normal. BUN 53, creatinine is 2.1 down from 2.5 on admission, lactate was 10.1 in the ER and now is 2.9. Liver function tests are normal. Troponins have gone up from 0.07 to 0.42. BNP is 16,000. Urinalysis showed greater than 25 white cells. Blood cultures x 2 show gram-negative rods. Urine culture is pending. Chest x-ray is clear. IMPRESSION: Gram-negative bacteremia in the setting of a urinary tract infection with sepsis as manifested by decreased mental status, decreased blood pressure, fever and decreased renal function. The patient seems improved today after multiple antibiotic treatments. At this time, I would like to stop all the antibiotics except for aztreonam. THE PATIENT HAS A HISTORY OF PENICILLIN ALLERGY. We may be able to clarify whether this is strong enough to prevent us from using the cephalosporins if one is sensitive. We will await results of the urine and blood cultures. We will want to follow CBC, electrolytes and renal function as well as check of followup blood culture. I appreciate the opportunity to offer input in the care of this complex patient. I will be happy to follow the patient through the weekend until Dr. Suazo returns on Wednesday. Thank you for this consultation. <ELECTRONICALLY SIGNED> By: Raul Power MD 05/15/18 0932 [id number] Power MD /nt
--- NOTE | 2018-05-15 10:49 | CON ---
[address] [address] CONSULTATION Name: MITUL PLAZA Room: [address] IN M.R.#: [id number] Admission: 05/13/18 Attend Phys: Moo Redd MD Discharge: Date of : 36 Report #: [id number] THIS REPORT FOR: //name// CC: Moo Greer [facility] Physician Kulwant Olson CARDIOLOGY CONSULTATION INDICATION: Elevated troponin in the setting of urosepsis. HISTORY OF PRESENT ILLNESS: The patient is a moderately demented pleasant 82-year-old white female who was admitted to the hospital with mental status changes. She was found to be septic. In this setting, she had a troponin of 0.4. She is not having chest pain. She denies any shortness of breath. At the time of my interview, she remains on a low dose of Levophed for pressure support, but otherwise appears hemodynamically stable. She is in the process of weaning off of her pressor agents presently. She is without cardiac complaint. PAST MEDICAL HISTORY: 1. Dementia. 2. GERD. 3. CVA. SOCIAL HISTORY: The patient resides in assisted care. There is no alcohol or tobacco use. FAMILY HISTORY: Noncontributory. ALLERGIES: MSG, PENICILLIN, TETRACYCLINE AND ADHESIVE TAPE. CURRENT MEDICATIONS: Documented in the medical chart. REVIEW OF SYSTEMS: Positive for history of anemia and throat cancer remotely. She has dementia. Otherwise, unremarkable. PHYSICAL EXAMINATION: VITAL SIGNS: Blood pressure 112/58, pulse 94 and regular. GENERAL: This is an elderly female who appears to be in no distress. HEENT: Head is normocephalic, atraumatic. Extraocular muscles are intact. Mucous membranes are moist. NECK: Examination of the neck shows no jugular venous distention. CHEST: Reveals diminished breath sounds, without wheezes or rales. CARDIAC EXAMINATION: Reveals a regular rhythm with normal S1 and S2. I do not appreciate a gallop or murmur. ABDOMEN: Examination of the abdomen reveals normal bowel [place] [address] CONSULTATION Name: MITUL PLAZA Meir Room: [address] IN [facility]#: [id number] Admission: 05/13/18 Attend Phys: Moo Redd MD Discharge: Date of : 36 Report #: [id number] is soft. EXTREMITIES: Shows no edema. SKIN: Warm and dry. IMPRESSION AND RECOMMENDATIONS: 1. Elevated troponin due to strain from sepsis. She is not having any symptoms to suggest acute coronary syndrome. I would not change her treatment at this time. 2. Urosepsis. The patient is receiving antibiotics and pressor agents and improving at this time. 3. Hypotension secondary to sepsis. 4. Elevated BNP. The patient does not appear volume overloaded at this time. I do not believe that she has acute exacerbation of her heart failure. 5. Chronic combined heart failure, appears relatively well compensated at this time. I would make no adjustments to her medications. At this point in time, the patient appears stable from a cardiac standpoint. We will follow as needed. <ELECTRONICALLY SIGNED> By: Srikanth Carter MD, FACC 05/15/18 1049 1003 [id number] Carter MD, FACC /nt
--- NOTE | 2018-05-15 13:41 | NUR ---
PATIENT'S BLOOD PRESSURE DROPPING. STERNAL RUB. VERY HARD TO AROUSE AFTER 10 MG GEODON ADMINISTRATION. [facility]. STENRAL RUB AWOKEN PATIENT. PAGED FOR LEVOPHED. PATIENT BLOOD PRESSURE INCREASED TO NORMAL LIMITS. LEVOPHED KEPT FOR STANDBY NEEDED.
[2018-05-16] VITALS (20 sets, daily range): BP systolic 94–130; BP diastolic 34–66
[2018-05-16 03:38] LABS: ABSOLUTE LYMPHOCYTES 0.5 thou/uL (0.8-5.3); ABSOLUTE MONOCYTES 0.6 thou/uL (0.0-1.2); ABSOLUTE NEUTROPHILS 7.8 thou/uL (1.6-8.1); BASOPHILS 0.3 %; EOSINOPHILS 0.3 %; HEMATOCRIT 24.6 % (37.0-47.0); HEMOGLOBIN 7.9 gm/dL (12.0-15.0); LYMPHOCYTES 5.2 %; MCH 28.3 pg (26.0-34.0); MCV 88.4 fL (80.0-100.0); MPV 9.2 fl. (7.2-11.1); NUCLEATED RBCS 0 /100WBC; PLATELET COUNT* 58 thou/uL (150-400); POLYS 87.2 %; RBC 2.79 mil/uL (4.20-5.00); RDW-CV 17.6 % (10.5-14.5); WBC 8.9 thou/uL (4.0-11.0)
[2018-05-16 04:22] LABS: ALBUMIN 1.4 g/dL (3.4-5.0); CALCIUM 7.9 mg/dL (8.5-10.1); CREATININE 1.7 mg/dL (0.6-1.3); POTASSIUM 3.2 mmol/L (3.5-5.1); TOTAL BILIRUBIN 0.2 mg/dL (<0.1-1.0); TOTAL PROTEIN 4.7 g/dL (6.4-8.2)
[2018-05-16 04:42] LABS: PREALBUMIN 9.7 mg/dL (18.0-35.7)
--- NOTE | 2018-05-16 08:00 | NUR ---
PATIENT CARE ASSUMED AT 0700. PATIENT ALERT, ORIENTED TO PERSON AND PLACE. SEEMS TO BE IN AND OUT OF BEING COMPLETELY ORIENTED. SOMETIMES RAMBLES, BUT NOT FREQUENT YESTERDAY. DENIES PAIN. OFF PRESSORS. CENTRAL LINE DRESSING CHANGED IT WAS COMING OFF. CVP DISCONTINUED PER DR GARCIA'S ORDER. TRACING NSR ON METAL BONDING WORKER. ABLE TO TOLERATE BREAKFAST, ATE ALL EGGS WITH HAM AND CHEESE. NO COUGHING NOTED WITH THIN LIQUIDS. SPEECH EVALUATION ORDERED BY PHYSICIAN IRISH. PT AND OT ORDERED. PATIENT'S SON CALLED, HE WILL BE HERE ON HIS LUNCH BREAK. BATH GIVEN. POTASSIUM BEING REPLACED FOR RESULT OF 3.2. WILL CONTINUE WITH CURRENT PLAN OF CARE.
--- NOTE | 2018-05-16 11:00 | NUR ---
PT ADMITTED 05/13 WITH SEPSIS. NO FAMILY HERE AT THIS TIME. 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 SHE SAID SHE BELIEVES PT IS PRIMARILY WHEELCHAIR BOUND. THEY CAN ACCEPT BACK BACK WHEN STABLE FOR DISCHARGE.
--- NOTE | 2018-05-16 11:30 | NUR ---
Nutrition: Pt from [facility]. Admitted with AMS, recurrent UTI, severe sepsis. Now, fever's down. Refused all meals yday, but is eating well this morning. Na 147, K+ 3.2, alb 1.4, prealb 9.7, BNP 99128. Had fecal impaction removed. RX: insulin, aspirin. Consult for "altered diet." Pt is on Renal/mech-alt ground diet - this is appropriate, per ICU rounds. Wt: 139#. No nutrition interventions needed at this time. Mild risk.
--- NOTE | 2018-05-16 14:44 | NUR ---
WOUND NURSE: PATIENT WITH HEALING PARTIAL THICKNESS SKIN LESION ON COCCYX. THERE IS NO ACTIVE DRAINAGE. 0.3 X 1.0 X 0.1 CM. RED, NONGRANULATING TISSUE IS IN THE WOUND BED. CLEANSED WITH WOUND CLEANSER AND GAUZE, THEN APPLIED SKIN PREP, THEN COVERED WITH BORDERED FOAM DRESSING. THIS WAS TOLERATED WELL BY THE PATIENT.
--- NOTE | 2018-05-16 16:52 | NUR ---
CATHFLO ADMINISTERED TO PATIENT'S PINK PORT. LINE NOW DRAWING BACK BLOOD ADEQUATELY IN ALL PORTS.
--- NOTE | 2018-05-16 18:28 | NUR ---
PATIENT PROGRESSING TOWARDS GOALS. MUCH MORE ALERT AT THE BEGINNING OF SHIFT. STILL CONFUSED AT TIMES AND MUMBLING, BUT HAS LONGER PERIODS OF CLEAR CONVERSATION. PATIENT SAT UP FOR BREAKFAST AND LUNCH TO EAT MEALS. PATIENT'S SON CAME TO SEE PATIENT AT END OF SHIFT, BUT PATIENT WAS SLEEPING.
[2018-05-17] VITALS (15 sets, daily range): BP systolic 106–151; BP diastolic 54–92
[2018-05-17 05:26] LABS: ABSOLUTE LYMPHOCYTES 0.4 thou/uL (0.8-5.3); ABSOLUTE MONOCYTES 0.7 thou/uL (0.0-1.2); ABSOLUTE NEUTROPHILS 4.8 thou/uL (1.6-8.1); BASOPHILS 0.1 %; EOSINOPHILS 0.8 %; HEMATOCRIT 25.5 % (37.0-47.0); LYMPHOCYTES 6.4 %; MCH 28.2 pg (26.0-34.0); MCHC 31.3 g/dL (28.0-37.0); MCV 89.9 fL (80.0-100.0); MONOCYTES 12.1 %; MPV 9.6 fl. (7.2-11.1); NUCLEATED RBCS 0 /100WBC; POLYS 80.6 %; RBC 2.84 mil/uL (4.20-5.00); RDW-CV 17.8 % (10.5-14.5); WBC 5.9 thou/uL (4.0-11.0)
[2018-05-17 05:52] LABS: ALBUMIN 1.4 g/dL (3.4-5.0); CREATININE 1.6 mg/dL (0.6-1.3); POTASSIUM 4.5 mmol/L (3.5-5.1); TOTAL BILIRUBIN 0.3 mg/dL (<0.1-1.0); TOTAL PROTEIN 4.7 g/dL (6.4-8.2)
[2018-05-17 05:56] LABS: PLATELET COUNT* 36 thou/uL (150-400)
--- NOTE | 2018-05-17 11:42 | NUR ---
PATIENT WENT TO CT FOR ABDOMEN PELVIS CT PER DR ZULETA. CONTRERAS IN CHART.
--- NOTE | 2018-05-17 14:29 | NUR ---
REPORT GIVEN TO SIENA VASQUEZ. ALL QUESTIONS ANSWERED. ALL PATINET BELONGSINGS, CHART AND MEIDCATIONS SENT WITH PATIENT TRANSFERED BY BED TO ROOM 312 WITH NURSING STAFF. SON CALLED AND UPDATED ON PATIENT TRANSFER.
--- NOTE | 2018-05-17 16:11 | NUR ---
PATIENT TRANSFERRED FROM ICU TO ROOM 312. ALERT AND ORIENTED TO NAME/BIRTHDATE OTHERWISE CONFUSED AND HAS GARBLED SPEECH AT TIMES. IVF INFUSING TO CENTRAL LINE, GOOD BLOOD RETURN NOTED AND FLUSHING WITHOUT DIFFICULTY. UROLOGY VEHICLE ASSEMBLER HERE THIS AFTERNOON SEEING PATIENT AND PATIENT TO HAVE SURGERY THIS EVENING, PATIENTS VALENTINA RIVERO NOTIFIED AND CONSENT SIGNED VIA PHONE. TURNED Q2. BED ALARM ON FOR PATIENT SAFETY.
--- NOTE | 2018-05-17 18:34 | NUR ---
PATIENT IN PACU AT THIS TIME FOR PROCEDURE. PATIENTS PRAKASH RIVERO AWARE AND GAVE CONSENT VIA TELEPHONE.
[2018-05-18 04:07] VITALS: BP 125/52
[2018-05-18 04:12] LABS: HEMATOCRIT 23.7 % (37.0-47.0); HEMOGLOBIN 7.4 gm/dL (12.0-15.0); MCH 27.8 pg (26.0-34.0); MCHC 31.1 g/dL (28.0-37.0); MCV 89.2 fL (80.0-100.0); MPV 10.9 fl. (7.2-11.1); NUCLEATED RBCS 0 /100WBC; RBC 2.66 mil/uL (4.20-5.00); RDW-CV 17.5 % (10.5-14.5); WBC 5.2 thou/uL (4.0-11.0)
[2018-05-18 04:25] LABS: PLATELET COUNT* 48 thou/uL (150-400)
[2018-05-18 04:30] LABS: PREALBUMIN 8.8 mg/dL (18.0-35.7)
[2018-05-18 04:31] LABS: ALBUMIN 1.3 g/dL (3.4-5.0); CALCIUM 7.6 mg/dL (8.5-10.1); CREATININE 0.7 mg/dL (0.6-1.3); TOTAL BILIRUBIN 0.4 mg/dL (<0.1-1.0); TOTAL PROTEIN 4.6 g/dL (6.4-8.2)
[2018-05-18 04:32] LABS: POTASSIUM 3.3 mmol/L (3.5-5.1)
[2018-05-18 04:46] LABS: ABSOLUTE LYMPHOCYTES 0.5 thou/uL (0.8-5.3); ABSOLUTE MONOCYTES 0.3 thou/uL (0.0-1.2); ABSOLUTE NEUTROPHILS 4.4 thou/uL (1.6-8.1); ANISOCYTOSIS 1+; HYPOCHROMASIA Occasional; OVALOCYTES 1+; PLATELET ESTIMATE DECREASED; TARGET CELLS Occasional; TEARDROPS 1+; TOXIC GRANULATION 1+
--- NOTE | 2018-05-18 06:02 | NUR ---
ASSESSMENT COMPLETE. PT SLEPT MOST OF THE NIGHT. PT GIVEN PAIN MEDICATION NEEDED. PT HAD LOW GRADE TEMP, TYLENOL GIVEN AND TEMP IN NORMAL RANGE. PT HAS IV FLUIDS INFUSING. IV ABX GIVEN. PT Q2 TURN. PT IS FALL RISK, BED ALARM ON. PT IS ON MONITOR, NSR WITH PVC'S. POSADA IN PLACE WITH BLOOD TINGED URINE. PT IS ON 2L PER NC. PT IS SLEEPING AT THIS TIME. SEE ASSESSMENT AND VITALS FOR OTHER DETAILS. CALL LIGHT WITHIN REACH. WILL CONTINUE PLAN OF CARE
[2018-05-18 07:30] VITALS: BP 107/44
[2018-05-18 12:27] VITALS: BP 118/56
--- NOTE | 2018-05-18 16:29 | NUR ---
PATIENT TURNED Q2 PER PROTOCOL. SMALL BLACK TARRY STOOL NOTED, DR. GARCIA MADE AWARE, NO NEW ORDERS RECEIVED. SPOKE WITH LAB REGARDING CULTURE RESULTS, PRINTED RESULTS PLACED IN FRONT OF CHART AND DR. ZULETA FROM ID AWARE. IJ SL THIS SHIFT PER ORDERS. ONE TIME DOSE IV LASIX GIVEN PER ORDERS, LARGE AMOUNT OF URINE NOTED. URINE REMAINS BLOOD TINGED. POTASSIUM REPLACED THIS SHIFT PER ELEC PROTOCOL.
[2018-05-18 16:33] VITALS: BP 95/55
[2018-05-18 20:15] VITALS: BP 123/52
[2018-05-18 23:51] VITALS: BP 93/45
[2018-05-19 04:30] VITALS: BP 143/77
[2018-05-19 05:18] LABS: ABSOLUTE EOSINOPHILS 0.1 thou/uL (0.0-0.7); ABSOLUTE LYMPHOCYTES 0.3 thou/uL (0.8-5.3); ABSOLUTE MONOCYTES 0.4 thou/uL (0.0-1.2); ABSOLUTE NEUTROPHILS 4.1 thou/uL (1.6-8.1); BASOPHILS 0.2 %; EOSINOPHILS 2.2 %; HEMATOCRIT 23.6 % (37.0-47.0); HEMOGLOBIN 7.4 gm/dL (12.0-15.0); MCH 27.6 pg (26.0-34.0); MCHC 31.6 g/dL (28.0-37.0); MCV 87.4 fL (80.0-100.0); MONOCYTES 7.5 %; NUCLEATED RBCS 0 /100WBC; PLATELET COUNT* 67 thou/uL (150-400); POLYS 83.1 %; RBC 2.69 mil/uL (4.20-5.00); RDW-CV 17.5 % (10.5-14.5)
[2018-05-19 05:41] LABS: ALBUMIN 1.4 g/dL (3.4-5.0); CALCIUM 7.9 mg/dL (8.5-10.1); CREATININE 0.5 mg/dL (0.6-1.3); POTASSIUM 3.6 mmol/L (3.5-5.1); TOTAL BILIRUBIN 0.4 mg/dL (<0.1-1.0); TOTAL PROTEIN 4.9 g/dL (6.4-8.2)
--- NOTE | 2018-05-19 06:31 | NUR ---
PT SLEPT FAIRLY WELL OVERNIGHT, AWAKENED WITH CARES AND BACK TO SLEEP. INCONTINENT SMALL BLACK SOFT FORM BM.POSADA DRAINING YELLOW URINE. TELE SR PVC. R IJ SL, ABX GIVEN ORDERED. AM LABS DRAWN. PT TURNED AND REPOSITIONED Q2 HOURS AND PRN FOR SKIN CARE AND COMFORT. DRSG TO COCCYX CDI. LSIDE WEAKENESS FROM OLD CVA. ARMS EDEMATOUS AND HAND CONTRACTURES. TAKING PILLS WHOLE IN PUDDING WITH THIN LIQUIDS AT HS. CONFUSED, PLEASANT. SOFT LITE CALL LITE GIVEN. O2 2L. BED ALARM ON FOR SAFETY.
[2018-05-19 08:20] VITALS: BP 134/56
--- NOTE | 2018-05-19 08:24 | CON ---
[address] [address] CONSULTATION Name: MELAMITUL J Room: [address] IN [facility].#: [id number] Admission: 05/13/18 Attend Phys: Moo Redd MD Discharge: Date of : 36 Report #: [id number] THIS REPORT FOR: //name// CC: Moo Maldonadonatalee DATE OF SERVICE: 05/18/2018 REASON FOR CONSULTATION: Thrombocytopenia. HISTORY OF PRESENT ILLNESS: The patient is an 83-year-old female who has been admitted into the ICU on 05/13/2018 because of hypotension, elevated lactic acid. It was thought to be with acute renal failure and thought to be septic due to UTI. During hospitalization, the patient received antibiotics including azithromycin and vancomycin. She also underwent yesterday bilateral cystoscopy with bilateral retrograde pyelogram and bilateral ureteral stents. Reviewing her platelet count upon arrival, it was 136,000 on 05/13/2018 and on 05/17/2018, dropped to 36. I discussed with the nurse yesterday there was no active bleeding. In addition to that, her hemoglobin has been hovering between 7 and 8. REVIEW OF SYSTEMS: Unable to be obtained due to the patient's condition. PAST MEDICAL HISTORY: Dementia, chronic anemia, CVA, GERD. MEDICATIONS: Per admission list. ALLERGIES: PENICILLIN, TETRACYCLINE AND ADHESIVE TAPE. SOCIAL HISTORY: She is a former smoker. She denies any alcohol abuse or drug abuse. FAMILY HISTORY: Noncontributory. PHYSICAL EXAMINATION: VITAL SIGNS: Today, temperature 36.2, pulse 79, respirations 22, blood pressure is 125/52, SpO2 was 98 on 2 liters. GENERAL: The patient was lying in bed. She looked tired. LUNGS: Decreased breathing sounds bilaterally. HEART: Regular rate and rhythm. S1, S2 within normal limits. ABDOMEN: Soft, nontender, nondistended, bowel sounds positive. EXTREMITIES: +1 edema bilaterally. IMAGING: Chest x-ray showed no acute cardiopulmonary process. A CT of the abdomen showed a small pleural effusion. Gallbladder is no longer visualized, [place] [address] CONSULTATION Name: MITUL PLAZA Room: [address] IN [facility]#: [id number] Admission: 05/13/18 Attend Phys: Moo Redd MD Discharge: Date of : 36 Report #: [id number] surgically removed. There was calculi present in both kidneys, high-grade obstruction, atherosclerotic calcification, thickening of the rectum appear unchanged from prior study. There was extensive degenerative disease in the lumbar spine. A retrograde pyelogram showed a mid right UPJ obstruction resulting with a mild prominent right pelvis and calyces. LABORATORY DATA: Including CBC, WBC today 5.2, hemoglobin 7.4, platelets 48. Today, differential showed +1 schistocytes with micro and macro cells. ESR 105, her PT 13.5, PTT 41.1, fibrinogen 284. D-dimer 20.9, creatinine 0.7. ASSESSMENT AND PLAN: An 83-year-old female who was evaluated because of acute thrombocytopenia developed during hospitalization. She had a previous exposure to vancomycin; however, she is on aztreonam at this point, which is less likely cause of thrombocytopenia. Other etiologies most likely multifactorial due to sepsis. I also suspect she has a mild underlying disseminated intravascular coagulation due to her infection, which was associated with a mild elevation of her coagulation studies and elevated D-dimer. At this point, her platelet count started to trend up. I think the patient is clinically responding. However, she still has a mild temperature. Agree with current antibiotics and treating underlying sepsis. Since there is no active bleeding, I would like to continue to monitor her platelet count since it starts to trend up gradually. <ELECTRONICALLY SIGNED> By: Tru Ibrahim MD 05/19/18 0824 0901 [id number] Ibrahim MD /nt
[2018-05-19 11:51] VITALS: BP 92/37
[2018-05-19 13:18] VITALS: BP 110/42
[2018-05-19 16:00] VITALS: BP 123/51
--- NOTE | 2018-05-19 18:47 | NUR ---
PATIENT HAS BEEN A/O TO PERSON THIS SHIFT ONLY, PLEASANTLY CONFUSED. PATIENT GIVEN TYLENOL THIS AM FOR GENERALIZED PAIN WITH PARTIAL RELIEF. PATIENT CONTINUES ON CARDAIC MONITOR TRACING NSR WITH PVCs. PATIENT CONTINUES ON O2 AT 2L/NC. PATIENT TURNED EVERY 2 HOURS AND HEELS ELEVATED. DRESSING INTACT TO COCCYX. PATIENT WORKED WITH OT THIS SHIFT AND WAS IN CHAIR FOR SHORT AMOUNT OF TIME, ASSISTED BACK TO BED WITH JOLEEN LIFT. POSADA PATENT AND DRAINING. ASSISTED WITH MEALS, APPETITE POOR, SUPPLEMENTS ENCOURAGED. HOURLY ROUNDING COMPLETED. FALL PRECAUTIONS IN PLACE. CALL LIGHT WITHIN REACH. WILL CONTINUE WITH PLAN OF CARE.
[2018-05-19 20:10] VITALS: BP 108/40
[2018-05-20] VITALS: BP 112/48
[2018-05-20 04:17] VITALS: BP 108/54
[2018-05-20 06:49] LABS: HEMATOCRIT 21.8 % (37.0-47.0); MCH 27.5 pg (26.0-34.0); MCHC 31.4 g/dL (28.0-37.0); MCV 87.6 fL (80.0-100.0); MPV 9.9 fl. (7.2-11.1); RBC 2.48 mil/uL (4.20-5.00); RDW-CV 17.5 % (10.5-14.5); WBC 5.8 thou/uL (4.0-11.0)
[2018-05-20 06:51] LABS: HEMOGLOBIN 6.8 gm/dL (12.0-15.0)
[2018-05-20 06:53] LABS: CREATININE 0.5 mg/dL (0.6-1.3); POTASSIUM 3.5 mmol/L (3.5-5.1)
--- NOTE | 2018-05-20 07:47 | NUR ---
PT RECEIVED TYLENOL AT HS FOR BUTTOCK PAIN. DRSG CDI TO BUTTOCK. PT TURNED AND REPOSITIONED Q2 HOURS AND PRN FOR SKIN CARE AND COMFORT. POSADA DRAINING YELLOW URINE. TELE SR PVC. TAKING PILLS WHOLE IN PUDDING. AM LABS, CRITICAL HGB REPORTED TO DR WITH ORDERS RECEIVED. CALL LITE IN EASY REACH. RIJ SL, ABX GIVEN. BED ALARM ON FOR SAFETY.
[2018-05-20 08:00] VITALS: BP 126/39
[2018-05-20 08:58] LABS: % SATURATION 9 % (20-39); IRON 12 ug/dL (50-175)
--- NOTE | 2018-05-20 15:21 | NUR ---
SPOKE WITH DR BENDER REGARDING CRITICAL LAB RESULTS, + GRAM COCCI IN PEDIATRIC BLOOD CULTURE. ORDERS RECEIVED.
[2018-05-20 16:10] VITALS: BP 108/37
--- NOTE | 2018-05-20 17:11 | NUR ---
PATIENT HAS BEEN A/O TO PERSON AND PLACE, FORGETFUL AND PLEASANTLY CONFUSED. 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 PATIENT CONTINUES ON O2 AT 2L/NC. DRESSING TO COCCYX CHANGED THIS SHIFT. PATIENT CONTINUES ON POSADA CATHETER. PATIENT REPOSITIOEND EVERY 2 HOURS AND HEELS ELEVATED. RESULTS OF +BC GIVEN TO DR RUVALCABA AND DR BENDER. PATIENT ASSISTED WITH MEALS. IV ANTIBIOTICS CONTINUE. PATIENT TAKES PILLS WHOLE IN APPLESAUCE. FALL PRECAUTIONS IN PLACE. HOURLY ROUNDING COMPLETED. CALL LIGHT WITHIN REACH. WILL CONTINUE WITH PLAN OF CARE.
[2018-05-20 20:00] VITALS: BP 97/43
[2018-05-21 00:10] VITALS: BP 116/55
--- NOTE | 2018-05-21 03:00 | NUR ---
ASSESSMENT: PT REMAIN ALERT AND ORIENT TIMES THREE, FORGETFUL AT TIMES. DENIES PAIN, SOB AND N/V. VSS, AFEBRILE. POSADA PATENT WITH ADEQUATE AMT OF YELLOW URINE OUTPUT. NO BM THIS SHIFT. RIGHT NECK IJ INTACT, WHITE PORT OCCLUDED. NOW ON 2 LITERS FROM 3 LITERS OF OXYGEN PER NC. SATS = 97% WILL CONTINUE TO TITRATE PRN. SR WITH OCCASSIONAL PVC'S PER MONITOR. TOLERATING PO INTAKE. TURNED Q 2 HOURS. COCCYX RED AND BLANCHABLE. SLOW PROGRESS TOWARDS DC GOALS, WILL CONTINUE TO MONITOR.
[2018-05-21 04:05] VITALS: BP 110/54
[2018-05-21 04:47] LABS: HEMATOCRIT 22.1 % (37.0-47.0); HEMOGLOBIN 7.1 gm/dL (12.0-15.0); MCHC 32.2 g/dL (28.0-37.0); MCV 86.8 fL (80.0-100.0); MPV 9.5 fl. (7.2-11.1); RBC 2.54 mil/uL (4.20-5.00); RDW-CV 17.6 % (10.5-14.5); WBC 6.2 thou/uL (4.0-11.0)
[2018-05-21 05:29] LABS: ALBUMIN 1.3 g/dL (3.4-5.0); CREATININE 0.5 mg/dL (0.6-1.3); MAGNESIUM 1.3 mg/dL (1.8-2.4); POTASSIUM 3.2 mmol/L (3.5-5.1); TOTAL BILIRUBIN 0.2 mg/dL (<0.1-1.0); TOTAL PROTEIN 4.5 g/dL (6.4-8.2)
[2018-05-21 08:15] VITALS: BP 103/52
[2018-05-21 11:56] VITALS: BP 107/43
[2018-05-21 16:00] VITALS: BP 106/44
--- NOTE | 2018-05-21 16:28 | NUR ---
PATIENT TURNED Q2. POSADA DRAINING ADEQUATE AMOUNTS OF URINE. SCHED IV ABX INFUSED ORDERED. MG AND POTASSIUM REPLACED PER PROTOCOL, LAB DRAW AT 1700. IRON TAB STARTED TODAY. NO BM NOTED THIS SHIFT. PATIENT ASSISTED WITH MEALS.
[2018-05-21 17:56] LABS: MAGNESIUM 2.7 mg/dL (1.8-2.4); POTASSIUM 4.8 mmol/L (3.5-5.1)
[2018-05-21 20:00] VITALS: BP 105/39
[2018-05-22] VITALS (8 sets, daily range): BP systolic 98–151; BP diastolic 38–61
--- NOTE | 2018-05-22 04:38 | NUR ---
ASSUMED PT CARE AT 1915 REPORT RECEIVED FROM NURSE. PT IS AOX1. CONFUSED. SINUS RYTHM ON THE COOK BOAT. ON O2 2 L NC SATURATION IS ABOVE 95%. NO COMPLAINT OF PAIN. R IJ IS PATENT. IV ABX GIVEN. Q2TURN FOLEYT IN PLACE. NO BM NOTED. FALL PRECAUTION IN PLACE. TOM CONTINUE TO MONITOR.
[2018-05-22 05:59] LABS: HEMATOCRIT 21.7 % (37.0-47.0); MCH 27.5 pg (26.0-34.0); MCHC 31.3 g/dL (28.0-37.0); MCV 87.9 fL (80.0-100.0); MPV 9.8 fl. (7.2-11.1); RBC 2.47 mil/uL (4.20-5.00); RDW-CV 17.7 % (10.5-14.5); WBC 7.2 thou/uL (4.0-11.0)
[2018-05-22 06:03] LABS: HEMOGLOBIN 6.8 gm/dL (12.0-15.0)
--- NOTE | 2018-05-22 06:58 | NUR ---
PT HGB CAME BACK TO 6.8 ORDER FOR 1 UNIT OF BLOOS RECEIVED LAB NOTIFIED. JODY AND LOUISE TO BE OBTAINED. ORDERS IN. DPOA CONTANCTED FOR CONSENT. CONSENT SIGNED WITNESSED BY CHARGE NURSE SHERWIN. WILL CONTINUE TO MONITOR,
--- NOTE | 2018-05-22 16:40 | NUR ---
PATIENT GIVEN 1 UNIT PRBC'S THIS AM PER ORDERS, SPOKE WITH DR. BENDER AND WILL RECHECK HGB IN AM. PATIENT UP TO CHAIR, LIFT UTILIZED. DRESSING TO COCCYX CHANGED AND PHOTO TAKEN PER PROTOCOL.
[2018-05-23 00:10] VITALS: BP 149/61
[2018-05-23 04:38] VITALS: BP 137/54
[2018-05-23 05:47] LABS: HEMATOCRIT 26.4 % (37.0-47.0); HEMOGLOBIN 8.5 gm/dL (12.0-15.0); MCH 27.8 pg (26.0-34.0); MCHC 32.1 g/dL (28.0-37.0); MCV 86.9 fL (80.0-100.0); MPV 9.1 fl. (7.2-11.1); RBC 3.04 mil/uL (4.20-5.00); RDW-CV 16.9 % (10.5-14.5); WBC 5.5 thou/uL (4.0-11.0)
[2018-05-23 06:00] LABS: ALBUMIN 1.5 g/dL (3.4-5.0); CREATININE 0.5 mg/dL (0.6-1.3); MAGNESIUM 1.6 mg/dL (1.8-2.4); POTASSIUM 4.4 mmol/L (3.5-5.1); TOTAL BILIRUBIN 0.2 mg/dL (<0.1-1.0); TOTAL PROTEIN 5.7 g/dL (6.4-8.2)
--- NOTE | 2018-05-23 06:00 | NUR ---
PT SLEPT WELL OVERNIGHT, AWAKENS WITH CARES AND BACK TO SLEEP. RECEIVED TYLENOL FOR BUTTOCK PAIN AT THS. DRSG TO SACRUM CDI. POSADA DRAINING YELLOW URINE-1600 OUT. TELE SR PVC OCC. TURNED AND REPOSITIONED Q2 HOURS AND PRN FOR SKIN CARE AND COMFORT. R IJ, SL ABX GIVEN ORDERED. BLOOD DRAWN AND SENT TO LAB. CALL LITE IN EASY REACH, BED ALARM FOR SAFETY.O2 2L NC.
[2018-05-23 07:50] VITALS: BP 141/54
[2018-05-23 11:35] VITALS: BP 104/41
[2018-05-23 12:21] LABS: URINE BILIRUBIN NEGATIVE (Negative); URINE BLOOD 3+ (Negative); URINE CLARITY CLOUDY; URINE COLOR BROWN; URINE GLUCOSE-RANDOM NEGATIVE (Negative); URINE KETONES NEGATIVE (Negative); URINE LEUKOCYTES 1+ (Negative); URINE NITRITE NEGATIVE (Negative); URINE PROTEIN 2+ (Negative)
[2018-05-23 12:32] LABS: SQUAMOUS 0-3 Few /LPF (0-3); URINE RBC >20 Many /HPF (0-2)
[2018-05-23 12:36] LABS: URINE POTASSIUM-RANDOM 55.1 mmol/L
[2018-05-23 15:38] VITALS: BP 110/56
--- NOTE | 2018-05-23 15:40 | NUR ---
SW attempted to contact pt family to discuss pending dc planning. There was no answer at home phone, SW called pt son's cell phone and he did not answer that either so SW left a detailed message introducing self, discussing CM role in dc and requested call back with any questions or concerns. SW noted pt to have MRI of head. SW to continue to follow to assist with dc to return to [facility] when pt is medically ready.
--- NOTE | 2018-05-23 17:26 | NUR ---
PATIENT MG REPLACED PER PROTOCOL. CENTRAL LINE DRESSING CHANGED PER PROTOCOL. UA AND LABS FOR URINE TESTING SENT PER ORDERS, DR. BENDER NOTIFIED THAT RESULTS WERE AVAILABLE. MRI WAS ORDERED BY DR. BENDER, PATIENT HAS PACEMAKER SO MRI CANCELLED. POOR APPETITE TODAY, ENCOURAGED EATING. PATIENT DOES WELL WITH LIQUIDS.
[2018-05-23 20:10] VITALS: BP 122/47
[2018-05-24] VITALS: BP 118/48
[2018-05-24 03:43] VITALS: BP 102/47
--- NOTE | 2018-05-24 05:47 | NUR ---
PT SLEPT WELL OVERNIGHT. TURNED AND REPOSITIONED Q2 HOURS AND PRN FOR SKIN CARE AND COMFORT. DRSG INTACT TO SACRUM. TELE SR, PVCS. RIJ SL. PO ABX GIVEN WITH OTHER MEDS IN PUDDING. O2 2L. POSADA DRAINING YELLOW URINE. AM LABS. CALL LITE IN EASY REACH, BED ALARM ON FOR SAFETY.
[2018-05-24 08:01] VITALS: BP 114/56
[2018-05-24 12:00] VITALS: BP 112/47
--- NOTE | 2018-05-24 14:02 | OP ---
[address] [address] OPERATIVE REPORT Name: MELAMITUL J Room: [address] IN M.R.#: [id number] Admission: 05/13/18 Attend Phys: Moo Redd MD Discharge: Date of : 37 Report #: [id number] THIS REPORT FOR: //name// CC: Moo Olson DATE OF SERVICE: 05/17/2018 PREOPERATIVE DIAGNOSES: 1. Bilateral ureteral stones. 2. Right ureteral obstruction. 3. Sepsis due to urinary tract infection. POSTOPERATIVE DIAGNOSES: 1. Bilateral ureteral stones. 2. Right ureteral obstruction. 3. Sepsis due to urinary tract infection. PROCEDURES PERFORMED: Cystoscopy, bilateral retrograde pyelograms and bilateral ureteral stent placements. SURGEON: Davion Chavis MD ANESTHESIA: General. ESTIMATED BLOOD LOSS: Minimal. COMPLICATIONS: None. INDICATION FOR PROCEDURE: This is an 83-year-old female who presented with acute sepsis due to urinary tract infection. She has been stabilized. She had a CAT scan, which revealed a right obstructing ureteral stone measuring about 7 mm in the distal ureter; however, on my review, she also had several stones in her left ureter. There did not appear to be obstruction. The risks, benefits and possible complications were explained in detail to her son who is durable power of associate attorney. This was obtained by my nurse practitioner. The patient has dementia and was unable to give any meaningful consent. He voiced clear understanding and would like to proceed. DESCRIPTION OF PROCEDURE: After obtaining informed consent, the patient was taken to the Operating Room and placed in supine position. After adequate general anesthesia and IV antibiotics, she was prepped and draped in the dorsal lithotomy position. A 21-Turkish cystoscope with 30 degree lens was introduced into the bladder. The bladder was systematically inspected. There were several 4-5 mm stones within the base of the bladder. [place] [address] OPERATIVE REPORT Name: JANIYAACMITUL Room: [address] IN [facility].#: [id number] Admission: 05/13/18 Attend Phys: Moo Redd MD Discharge: Date of : 37 Report #: [id number] passed off the table, sent to the lab. The right ureter was then cannulated with a 5-Turkish open-ended ureteral catheter. Under erection shop supervisor images, there was a calcific density overlying the distal ureter. On retrograde, there was normal caliber ureter up to this calcific density which became a filling defect. A small amount of contrast did pass proximal to the stone where there was moderate hydronephrosis. A guidewire was passed around the stone in the renal pelvis under fluoroscopic guidance. The catheter was advanced over the wire into the renal pelvis and an immediate expulsion of the purulent material was noted around the catheter. A retrograde pyelogram was performed at this level confirming appropriate placement. There was moderate tortuosity of the proximal ureter as well as a [id number] proximal hydronephrosis. The wire was replaced and a 4.8 x 28 cm double-J stent was passed in retrograde fashion over the wire. A good coil was noted overlying the renal pelvis and good coil was directly visualized in the bladder. A purulent hydronephrotic drip was noted. Attention was then placed on the left side where a retrograde pyelogram was performed. There was normal caliber ureter for about 3-4 cm. Then, a filling defect measuring 4-5 mm was noted. There was minimal hydronephrosis proximal. There was no pelvocaliectasis. Findings were consistent with a distal ureteral stone. At this point, it was determined that a stent would be placed on this side to help the stone pass and to prevent obstruction on that side. The guidewire was placed in a retrograde fashion. A 4.8 x 28 cm double-J stent was passed in retrograde fashion over the wire. Good coil was noted overlying the renal pelvis and a good coil was directly visualized in the bladder. Moderate purulent drainage was noted from that side as well. A 16-Turkish Brand catheter was placed to dependent drainage. The patient was extubated and taken to recovery room in good condition. The plan is to return her care to floor, treat her urinary tract infection and plan on definitive management of her stones in 1-2 weeks after her infection has been cleared. <ELECTRONICALLY SIGNED> By: Davion Chavis MD 05/24/18 1402 1828 1848Davion Chavis MD /alpa
[2018-05-24 15:49] VITALS: BP 134/64
[2018-05-24 18:06] LABS: IgA 207 mg/dL (64-422); IgG 1439 mg/dL (700-1600); IgM 270 mg/dL (26-217)
--- NOTE | 2018-05-24 18:55 | NUR ---
PT ENCOURAGED TO EAT AND DRINK FLUIDS. WAS ABLE TO SMALL AMOUNT OF DINNER AFTER SET UP BY SELF. MOUTH CARE FOR PT TODAY. PT MOUTH VERY DRY. PT C/O PAIN IN JACOB AREA. LARGE AMOUNT OF WHITE DISCHARGE AND REDNESS NOTED. PERICARE GIVEN AND PT REPORTED PAIN WAS BETTER. POSADA TO DD WITH CLEAR YELLOW URINE. PT C/O PAIN TO BUTTOCKS. TYLENOL GIVEN ON REQUEST. FAMILY VISITING NOW. PT ABLE TO MAKE NEEDS KNOWN, CALL LIGHT IN REACH
[2018-05-24 21:38] VITALS: BP 126/55
[2018-05-25] VITALS: BP 100/55
[2018-05-25 04:10] VITALS: BP 128/64
[2018-05-25 05:47] LABS: HEMATOCRIT 28.4 % (37.0-47.0); HEMOGLOBIN 9.1 gm/dL (12.0-15.0); MCH 27.9 pg (26.0-34.0); MCHC 32.1 g/dL (28.0-37.0); MCV 86.7 fL (80.0-100.0); MPV 8.9 fl. (7.2-11.1); RBC 3.28 mil/uL (4.20-5.00); RDW-CV 17.1 % (10.5-14.5); WBC 5.5 thou/uL (4.0-11.0)
[2018-05-25 06:07] LABS: CALCIUM 9.1 mg/dL (8.5-10.1); CREATININE 0.7 mg/dL (0.6-1.3); POTASSIUM 4.6 mmol/L (3.5-5.1)
--- NOTE | 2018-05-25 07:42 | NUR ---
PATIENT SLEPT MOST OF THE NIGHT. RIJ REMAINS INPLACE SALINE LOCKED. POSADA REMAINS TODAY DEPENDENT DRAIN. DRESSING REMAINS TO SACRUM. PATIENT WAS TURNED ABOUT EVERY TWO HOURS CHARTED. WILL CONTINUE TO MONITOR.
[2018-05-25 08:00] VITALS: BP 132/61
[2018-05-25 11:51] VITALS: BP 125/63
[2018-05-25] MEDS ORDERED: COLACE100 MG PO (12:56)
[2018-05-25] MEDS ORDERED: CEFUROXIME500 MG PO (12:57)
[2018-05-25] MEDS ORDERED: MEGESTROL400 MG/11 PO (12:58)
[2018-05-25] MEDS ORDERED: UROCIT-K10 ME1 PO (13:01)
[2018-05-25 13:02] VITALS: BP 125/63
--- NOTE | 2018-05-25 13:47 | NUR ---
Pt to dc to [facility] today; JESSICA called Balbina in admissions and Balbina approved of pt to return home today and scheduled transportation for 3:00 pm. JESSICA faxed referral info along with dc orders and med list to [facility] admissions ph [phone] fax [phone]. JESSICA called and left detailed message for pt fabian Ricardo. Pt nurse aware of plans.
--- NOTE | 2018-05-25 15:29 | NUR ---
ROOM AIR SAT CHECKED AND PATIENT WAS 92-94%. PATIENT'S TRIPLE LUMEN IJ REMOVED, PRESSURE DRESSING APPLIED. PATIENT HAD PICTURE OBTAINED OF SACRAL WOUND PRIOR TO DC. PATIENT TRANSFERRED WITH MAX ASSIST TO THE WHEELCHAIR. REPORT CALLED TO LON AT [facility]. DISHCARGED VIA WHEELCHAIR VAN WITH ALL BELONGINGS.
[2018-05-27 10:07] LABS: STONE CALCIUM PHOSPHATE 40 % (()); STONE COLOR Tan (()); STONE COMMENT Note: (()); STONE MAGNESIUM AMMON PHOS 58 % (()); STONE WEIGHT 10.3 mg (())
[2018-05-31 06:05] LABS: GLOBULIN TOTAL 3.5 g/dL (2.2-3.9); M-SPIKE Not Observed g/dL (Not Observed)
== END 2018-05-25 15:41 | DRG 853 ==
LOC: M.ERS 09:12 → M.ICU 11:35 → M.TBA-ER 11:35 → M.3W 11:35 → M.ICU 13:11 → M.3W 05-17 14:32
PROVIDERS: Emergency Medicine Emergency Medical Services; Internal Medicine; Urology; ADMIT Internal Medicine
DX: A41.50 Gram-negative sepsis, unspecified (principal); R65.21 Severe sepsis with septic shock; N17.0 Acute kidney failure with tubular necrosis; G93.41 Metabolic encephalopathy; E44.0 Moderate protein-calorie malnutrition; N13.6 Pyonephrosis; I50.42 Chronic combined systolic (congestive) and diastolic (congestive) heart failure; F03.90 Unspecified dementia, unspecified severity, without behavioral disturbance, psychotic disturbance, mood disturbance, and anxiety; K21.9 Gastro-esophageal reflux disease without esophagitis; D64.9 Anemia, unspecified; R27.0 Ataxia, unspecified; D69.6 Thrombocytopenia, unspecified; F32.9 Major depressive disorder, single episode, unspecified; Z68.24 Body mass index [BMI] 24.0-24.9, adult; I69.328 Other speech and language deficits following cerebral infarction; Z79.899 Other long term (current) drug therapy; Z87.891 Personal history of nicotine dependence; Z88.1 Allergy status to other antibiotic agents; Z88.0 Allergy status to penicillin; Z88.8 Allergy status to other drugs, medicaments and biological substances; Z91.048 Other nonmedicinal substance allergy status

== ENCOUNTER 2018-06-13 15:34 | Emergency (ER) | payer MEDICARE, OTHER ==
[~2018-06-13] VITALS: Ht 157.5 cm; Wt 58.6 kg
[~2018-06-13 15:34] MED LIST changes: +ALBUTEROL2.5 MG/31 INH; +CEFUROXIME500 MG PO; +COLACE100 MG PO; +MEGESTROL400 MG/11 PO; +PROTONIX40 M4 PO; +SENNA8.6 MG PO; +UROCIT-K10 ME1 PO; +VITAMINC500 PO
[2018-06-13 16:11] LABS: HEMATOCRIT 30.4 % (37.0-47.0); HEMOGLOBIN 9.5 gm/dL (12.0-15.0); MCH 27.4 pg (26.0-34.0); MCHC 31.2 g/dL (28.0-37.0); MCV 87.7 fL (80.0-100.0); MPV 7.3 fl. (7.2-11.1); NUCLEATED RBCS 0 /100WBC; PLATELET COUNT* 318 thou/uL (150-400); RBC 3.47 mil/uL (4.20-5.00); RDW-CV 18.3 % (10.5-14.5); WBC 10.2 thou/uL (4.0-11.0)
[2018-06-13] MEDS ORDERED: TRAMADOL 50 MG50 MG PO (16:14)
[2018-06-13 16:27] LABS: ANION GAP 5 mmol/L (7-16); BUN 26 mg/dL (7-18); CALCIUM 9.6 mg/dL (8.5-10.1); CHLORIDE 104 mmol/L (98-107); CO2 30 mmol/L (21-32); CREATININE 0.9 mg/dL (0.6-1.3); GLUCOSE 123 mg/dL (70-99); POTASSIUM 4.8 mmol/L (3.5-5.1); SODIUM 139 mmol/L (136-145)
[2018-06-13 16:34] LABS: ALBUMIN 2.1 g/dL (3.4-5.0); ALKALINE PHOSPHATASE 74 U/L (46-116); SGOT 36 U/L (15-37); SGPT 68 U/L (30-65); TOTAL BILIRUBIN 0.2 mg/dL (<0.1-1.0); TOTAL PROTEIN 7.7 g/dL (6.4-8.2); TROPONIN-I LEVEL <0.06 ng/mL (<0.06)
[2018-06-13 16:46] LABS: ABSOLUTE EOSINOPHILS 0.3 thou/uL (0.0-0.7); ABSOLUTE LYMPHOCYTES 0.5 thou/uL (0.8-5.3); ABSOLUTE MONOCYTES 0.4 thou/uL (0.0-1.2); PLATELET ESTIMATE ADEQUATE
[2018-06-13 16:47] LABS: ANISOCYTOSIS 1+
[2018-06-13 17:34] LABS: URINE BILIRUBIN NEGATIVE (Negative); URINE BLOOD 3+ (Negative); URINE CLARITY CLOUDY; URINE GLUCOSE-RANDOM NEGATIVE (Negative); URINE KETONES NEGATIVE (Negative); URINE LEUKOCYTES-REFLEX 3+ (Negative); URINE NITRITE-REFLEX POSITIVE (Negative); URINE PROTEIN 2+ (Negative)
[2018-06-13 17:35] LABS: URINE COLOR AMBER
[2018-06-13 17:40] LABS: SQUAMOUS 0-3 Few /LPF (0-3)
[2018-06-13 17:41] LABS: BACTERIA-REFLEX >30 Many /HPF (None Seen); CASTS None Seen /LPF (None Seen); CRYSTALS None Seen /LPF (None Seen); MUCUS None Seen strn/LPF (None Seen); URINE RBC >20 Many /HPF (0-2)
[2018-06-13 17:43] LABS: URINE WBC-REFLEX >25 Many /HPF (0-5)
[2018-06-13] MEDS ORDERED: KEFLEX500 M1 PO (17:55)
[2018-06-13 20:23] VITALS: BP 116/48
--- NOTE | 2018-06-14 11:34 | EKG ---
[place] [address] ELECTROCARDIOGRAM REPORT Name: MITUL PLAZA Room: [facility]#: [id number] Admission: 06/13/18 Attend Phys: Discharge: 06/13/18 Date of : 37 Report #: [id number] THIS REPORT FOR: //name// [facility] ED Test Date: 2018-06-13 Test Time: 15:42:03 Pat Name: MITUL PLAZA Department: Room: Gender: F Inspector Finishing: Eran CROW : 1935 Requested By: Morales Turner Order Number: [id number] MD: Sonu Ayala Measurements Intervals [place] Rate: 85 P: 49 [place]: 131 QRS: -32 QRSD: 94 T: -25 QT: 384 QTc: 457 Interpretive Statements Sinus rhythm Abnormal R-wave progression, early transition Inferior infarct, old Compared to ECG 05/13/2018 09:26:22 No significant changes Electronically Signed On 06-14-2018 11:34:02 AIRLINE MANAGERIAL SUPERVISOR by Sonu Ayala [email or web address] <ELECTRONICALLY SIGNED> By: Sonu Ayala MD, FACC 06/14/18 1134 [id number] [id number] Sonu Ayala MD, FAC /EPI
== END 2018-06-13 20:42 ==
LOC: M.ERS 15:34
PROVIDERS: Emergency Medicine Emergency Medical Services
DX: N39.0 Urinary tract infection, site not specified (principal); K21.9 Gastro-esophageal reflux disease without esophagitis; F32.9 Major depressive disorder, single episode, unspecified; M06.9 Rheumatoid arthritis, unspecified; Z90.710 Acquired absence of both cervix and uterus; F03.90 Unspecified dementia, unspecified severity, without behavioral disturbance, psychotic disturbance, mood disturbance, and anxiety; Z86.2 Personal history of diseases of the blood and blood-forming organs and certain disorders involving the immune mechanism; Z88.0 Allergy status to penicillin; Z88.8 Allergy status to other drugs, medicaments and biological substances

== ENCOUNTER 2018-09-14 04:21 | Inpatient (IN) | payer MEDICARE, OTHER ==
[~2018-09-14] VITALS: Ht 160 cm; Wt 45.1 kg
[~2018-09-14 04:21] MED LIST changes: +TRAMADOL 50 MG50 MG PO
[2018-09-14 04:30] VITALS: BP 92/46
[2018-09-14 05:08] LABS: ABSOLUTE BASOPHILS 0.1 thou/uL (0.0-0.2); ABSOLUTE EOSINOPHILS 0.3 thou/uL (0.0-0.7); ABSOLUTE LYMPHOCYTES 1.4 thou/uL (0.8-5.3); ABSOLUTE MONOCYTES 0.9 thou/uL (0.0-1.2); ABSOLUTE NEUTROPHILS 5.6 thou/uL (1.6-8.1); BASOPHILS 0.9 %; EOSINOPHILS 4.1 %; HEMATOCRIT 27.9 % (37.0-47.0); HEMOGLOBIN 8.6 gm/dL (12.0-15.0); LYMPHOCYTES 17.1 %; MCH 29.6 pg (26.0-34.0); MCHC 30.7 g/dL (28.0-37.0); MCV 96.5 fL (80.0-100.0); MONOCYTES 11.1 %; MPV 8.1 fl. (7.2-11.1); NUCLEATED RBCS 0 /100WBC; PLATELET COUNT* 228 thou/uL (150-400); POLYS 66.8 %; RBC 2.89 mil/uL (4.20-5.00); RDW-CV 18.6 % (10.5-14.5); WBC 8.4 thou/uL (4.0-11.0)
[2018-09-14 05:17] LABS: ALBUMIN 2.2 g/dL (3.4-5.0); CALCIUM 8.5 mg/dL (8.5-10.1); CREATININE 0.8 mg/dL (0.6-1.3); POTASSIUM 4.2 mmol/L (3.5-5.1); TOTAL BILIRUBIN 0.2 mg/dL (<0.1-1.0); TOTAL PROTEIN 6.2 g/dL (6.4-8.2)
[2018-09-14 05:23] LABS: INR 1.1; PROTIME 10.9 Seconds (9.20-11.50)
[2018-09-14] MEDS ORDERED: POTASSIUM20 (05:42)
[2018-09-14 06:16] LABS: URINE BLOOD 3+ (Negative); URINE CLARITY SL CLOUDY; URINE COLOR RED; URINE GLUCOSE-RANDOM NEGATIVE (Negative); URINE KETONES NEGATIVE (Negative); URINE LEUKOCYTES-REFLEX TRACE (Negative); URINE PROTEIN 3+ (Negative)
[2018-09-14 06:19] LABS: ICTOTEST (BILI CONFIRMATORY) Negative (Negative); URINE BILIRUBIN 1+ (Negative); URINE NITRITE-REFLEX POSITIVE (Negative)
[2018-09-14 06:21] LABS: BACTERIA-REFLEX 1-9 Few /HPF (None Seen); CASTS None Seen /LPF (None Seen); CRYSTALS None Seen /LPF (None Seen); MUCUS 0-3 Light strn/LPF (None Seen); SQUAMOUS 0-3 Few /LPF (0-3); URINE RBC >20 Many /HPF (0-2); URINE WBC-REFLEX 0-5 Rare /HPF (0-5)
[2018-09-14 08:35] VITALS: BP 111/89
[2018-09-14 09:00] VITALS: BP 93/49
[2018-09-14 16:00] VITALS: BP 93/44
--- NOTE | 2018-09-14 16:52 | NUR ---
SW attempted to meet with pt, pt sleeping soundly. From previous record, pt lives at [facility]. SW to continue to follow to verify information with pt/family and with admissions at [facility]. SW to assist with safe dc planning.
--- NOTE | 2018-09-14 17:20 | NUR ---
PATIENT ARRIVED FROM ER THIS AM. PATIENT IS CONFUSED, ALERT TO SELF. PATIENT SLEPT MOST OF DAY. PATIENT DENIES ANY PAIN. PATIENT IS INCONTINENT OF BOWEL AND BLADDER. URINE IS BLOODY WITH CLOTS, UROLOGY NOTIFIED OF CLOTS AND CT RESULTS GIVEN. PATIENT IS NPO. PATIENT DENIES ANY NEEDS AT THIS TIME. CALL LIGHT WITHIN REACH. BED ALARM ON. WILL CONTINUE TO MONITOR.
[2018-09-15 00:26] VITALS: BP 103/55
[2018-09-15 04:09] LABS: ABSOLUTE EOSINOPHILS 0.2 thou/uL (0.0-0.7); ABSOLUTE MONOCYTES 0.6 thou/uL (0.0-1.2); ABSOLUTE NEUTROPHILS 3.3 thou/uL (1.6-8.1); BASOPHILS 0.8 %; EOSINOPHILS 3.7 %; HEMATOCRIT 20.5 % (37.0-47.0); LYMPHOCYTES 19.5 %; MCH 29.6 pg (26.0-34.0); MCHC 31.3 g/dL (28.0-37.0); MCV 94.5 fL (80.0-100.0); MPV 8.1 fl. (7.2-11.1); NUCLEATED RBCS 0 /100WBC; PLATELET COUNT* 171 thou/uL (150-400); RBC 2.17 mil/uL (4.20-5.00); RDW-CV 18.3 % (10.5-14.5); WBC 5.1 thou/uL (4.0-11.0)
[2018-09-15 04:12] LABS: CALCIUM 7.9 mg/dL (8.5-10.1); CREATININE 0.6 mg/dL (0.6-1.3); MAGNESIUM 1.9 mg/dL (1.8-2.4); POTASSIUM 3.8 mmol/L (3.5-5.1)
[2018-09-15 04:28] LABS: PREALBUMIN 14.6 mg/dL (18.0-35.7)
[2018-09-15 04:41] LABS: HEMOGLOBIN 6.4 gm/dL (12.0-15.0)
--- NOTE | 2018-09-15 05:39 | NUR ---
PATIENT SLEPT MOST OF THE NIGHT. URINE REMAINS BLOODY WITH CLOTS. IV FLUIDS CONTINUE TO INFUSE AT 100 ML/HR. PATIENT HAD A CRITICAL HEMOGLOBIN OF 6.4 THIS MORNING. A UNIT OF BLOOD HAS BEEN ORDERED. PATIENT HAS BEEN TURNED ABOUT EVERY TWO HOURS. PATIENT REMAINS ON OXYGEN AT 2L. PATIENT REMAINS NPO FOR POSSIBLE PROCEDURE TODAY. WILL CONTINUE TO MONITOR.
[2018-09-15 07:30] VITALS: BP 116/94
[2018-09-15 12:25] VITALS: BP 131/89; BP 133/65; BP 135/69; BP 140/60
--- NOTE | 2018-09-15 12:45 | NUR ---
WOUND CARE NOTE: ASSESSMENT FOR PRESSURE ULCER TO COCCYX. PATIENT WITH PINK SCAR TISSUE TO SACROCOCCYGEAL REGION. NO OPEN WOUNDS NOTED. RECOMMEND TURN Q2 HOURS-WITH WEDGES CONTINUE WITH OFFLOADING BOOTS ENCOURAGE GOOD NUTRTION/HYDRATION FREQUENT CHECKS FOR INCONTINENCE LIMIT LAYERS OF LINEN UNDER PATIENT
[2018-09-15 16:27] VITALS: BP 116/94
--- NOTE | 2018-09-15 18:03 | NUR ---
PATIENT ORIENTATED TO SELF, NEGATIVE ON TIME AND PLACE. PATIENT RECIEVED 1 UNIT OF RBC, TOLERATED WELL.CONSENT FOR BLOOD GIVEN BY PRAKASH PLAZA. PATIENT ON 2L NC. POSSIBLE CYSTOSCOPY TOMORROW, CONSENT RECEIVED FROM PRAKASH PLAZA. 3-WAY-POSADA INSERTED BY LAND DEGRADATION ANALYST. PATIENT ON CBI. NO CLOT FOUND IN URINE DURING SHIFT. PATIENT ON MECHANICAL ALTERED GROUND DIET. PATIENT PLEASNT AND APPROPRIATE DURING SHIFT.
[2018-09-15 20:30] VITALS: BP 102/44
--- NOTE | 2018-09-16 05:59 | NUR ---
PATIENT SLEPT MOST OF THE NIGHT. IV FLUIDS CONTINUE TO INFUSE. POSADA REMAINS TO DEPENDENT DRAIN WITH CBI IN PLACE. URINE IS A PINK COLOR. PATIENT REMAINS ON OXYGENA AT 2L PER NASAL CANNULA. WILL CONTINUE TO MONITOR.
[2018-09-16 07:34] VITALS: BP 119/59
[2018-09-16 09:52] LABS: HEMATOCRIT 25.6 % (37.0-47.0); HEMOGLOBIN 8.2 gm/dL (12.0-15.0); MCH 29.4 pg (26.0-34.0); MCV 91.8 fL (80.0-100.0); MPV 7.9 fl. (7.2-11.1); RBC 2.79 mil/uL (4.20-5.00); RDW-CV 17.3 % (10.5-14.5); WBC 6.4 thou/uL (4.0-11.0)
[2018-09-16 10:07] LABS: ALBUMIN 1.8 g/dL (3.4-5.0); CALCIUM 7.5 mg/dL (8.5-10.1); CREATININE 0.6 mg/dL (0.6-1.3); POTASSIUM 3.4 mmol/L (3.5-5.1); TOTAL BILIRUBIN 0.3 mg/dL (<0.1-1.0)
--- NOTE | 2018-09-16 10:49 | EKG ---
[place] [address] ELECTROCARDIOGRAM REPORT Name: MITUL PLAZA Room: [address] ADM IN M.R.#: [id number] Admission: 09/14/18 Attend Phys: Davion Martin MD Discharge: Date of : 37 Report #: [id number] THIS REPORT FOR: //name// [facility] Test Date: 2018-09-15 Test Time: 16:44:52 Pat Name: MITUL PLAZA Department: Room: [address] Gender: F Control Cabinet Assembler: CARMEN : 1935 Requested By: Davion Martin Order Number: [id number] Reading MD: Odell Arenas Measurements Intervals [place] Rate: 75 P: 48 ID: [id number] QRS: -36 QRSD: 131 T: -35 QT: 386 QTc: 432 Interpretive Statements Sinus rhythm Multiple premature complexes, vent & supraven Nonspecific IVCD with LAD low voltage Artifact in lead(s) I,II,III,aVR,aVL,aVF Compared to ECG 06/13/2018 15:42:03 pvc noted Electronically Signed On 09-16-2018 10:49:52 CDT by Odell Arenas [email or web address] <ELECTRONICALLY SIGNED> By: Odell Arenas MD, FACC 09/16/18 1049 1644 1644 Odell Arenas MD, FAC /EPI
--- NOTE | 2018-09-16 13:11 | NUR ---
Nutrition: Pt seen for low BMI. Wt entered today is 99#. Previous wt entered is 119#. Pt had blankets up to neck today, so difficult to assess. Pt stated she doesn't think she's had any wt changes recently. She did agree to some Ensure supplements b/c she likes them. Pt is thin, but doesn't appear malnourished at thist time. Seemed a little confused. Ground diet. Mild risk. Follow up 09/23/18.
[2018-09-16 16:00] VITALS: BP 154/63
--- NOTE | 2018-09-16 16:05 | NUR ---
ASSESSMENT COMPLETE. PT ALERT AND ORIENTED TO SELF AND PLACE. PT CONFUSED AND FORGETFUL. PT IS Q2 TURN. IV FLUIDS DC'D. IV ROCEPHIN GIVEN. UROLOGY ROUNDED AND CONTINUED CONTINOUS BLADDER IRRIGATION AT A SLOW RATE. URINE IN CATHETER IS CLEAR, BLOOD TINGED. PT TAKES MEDS CRUSHED IN PUDDING. PT TOLERATING MEALS. PT NEEDS HELP WITH MEALS. URINE CULTURES PENDING. SEE ASSESSMENT AND VITALS FOR OTHER DETAILS. CALL LIGHT WITHIN REACH, WILL CONTINUE PLAN OF CARE
[2018-09-16 23:15] VITALS: BP 115/52
--- NOTE | 2018-09-17 05:19 | NUR ---
PT SLEPT ON AND OFF OVERNIGHT. AO TO SELF AND SITUATION, FORGETFUL, PLEASANT. TAKING MEDS CRUSHED IN PUDDING WITHOUT DIFFICULTY. CBI INFUSING AT SLOW RATE, POSADA DRAINING YELLOW URINE WITH BLOOD TINGE. RADHA MIDLINE IV SL. O2 2L. AM LAB DRAWN. DNR. PT TURNED AND REPOSITIONED Q2 HOURS AND PRN FOR SKIN CARE AND COMFORT PT WOULD ALLOW. CALL LITE IN EASY REACH, BED ALARM ON FOR SAFETY.
[2018-09-17 07:12] VITALS: BP 95/50
[2018-09-17 11:57] LABS: ABSOLUTE BASOPHILS 0.1 thou/uL (0.0-0.2); ABSOLUTE EOSINOPHILS 0.2 thou/uL (0.0-0.7); ABSOLUTE LYMPHOCYTES 0.8 thou/uL (0.8-5.3); ABSOLUTE MONOCYTES 0.6 thou/uL (0.0-1.2); ABSOLUTE NEUTROPHILS 4.3 thou/uL (1.6-8.1); BASOPHILS 0.9 %; EOSINOPHILS 3.1 %; HEMATOCRIT 26.8 % (37.0-47.0); HEMOGLOBIN 8.5 gm/dL (12.0-15.0); LYMPHOCYTES 13.6 %; MCH 29.2 pg (26.0-34.0); MCHC 31.9 g/dL (28.0-37.0); MCV 91.7 fL (80.0-100.0); MONOCYTES 10.4 %; MPV 7.6 fl. (7.2-11.1); NUCLEATED RBCS 0 /100WBC; PLATELET COUNT* 191 thou/uL (150-400); RBC 2.92 mil/uL (4.20-5.00); RDW-CV 17.2 % (10.5-14.5); WBC 5.9 thou/uL (4.0-11.0)
[2018-09-17 12:03] LABS: CALCIUM 8.1 mg/dL (8.5-10.1); CREATININE 0.8 mg/dL (0.6-1.3); POTASSIUM 3.6 mmol/L (3.5-5.1)
[2018-09-17 15:39] VITALS: BP 146/69
--- NOTE | 2018-09-17 15:46 | NUR ---
ASSESSMENT COMPLETE. ALERT TO SELF. PT IS AT BASELINE NEURO. PT/OT/ST CONSULTED TODAY. CULTURES PENDING, CURRENTLY ON IV ROCEPHIN DAILY. CONTINOUS BLADDER IRRIGATION IN PLACE, URINE IS SLIGHTLY BLOOD TINGED. UROLOGY CONSULTED. PT IS ON 2L PER NC. DENIES PAIN AND N/V. TAKES MEDICATIONS CRUSHED. PT NEED ASSISTANCE WITH MEALS, EATING ABOUT 25% OF MEALS. ENSURE GIVEN WITH MEALS. BOOTS TO BLE, Q2 TURN. MIDLINE TO LEFT UPPER ARM. SEE ASSESSMENT AND VITALS FOR OTHER DETAILS. CALL LIGHT WITHIN REACH, WILL CONTINUE PLAN OF CARE
[2018-09-17 22:38] VITALS: BP 118/55
[2018-09-18 05:19] LABS: ABSOLUTE BASOPHILS 0.1 thou/uL (0.0-0.2); ABSOLUTE EOSINOPHILS 0.2 thou/uL (0.0-0.7); ABSOLUTE LYMPHOCYTES 0.9 thou/uL (0.8-5.3); ABSOLUTE MONOCYTES 0.7 thou/uL (0.0-1.2); ABSOLUTE NEUTROPHILS 4.2 thou/uL (1.6-8.1); BASOPHILS 1.4 %; EOSINOPHILS 3.7 %; HEMATOCRIT 26.4 % (37.0-47.0); HEMOGLOBIN 8.5 gm/dL (12.0-15.0); LYMPHOCYTES 15.4 %; MCH 29.4 pg (26.0-34.0); MCHC 32.2 g/dL (28.0-37.0); MCV 91.3 fL (80.0-100.0); MONOCYTES 10.9 %; NUCLEATED RBCS 0 /100WBC; PLATELET COUNT* 185 thou/uL (150-400); POLYS 68.6 %; RBC 2.89 mil/uL (4.20-5.00); RDW-CV 17.3 % (10.5-14.5); WBC 6.1 thou/uL (4.0-11.0)
[2018-09-18 05:29] LABS: CALCIUM 8.4 mg/dL (8.5-10.1); CREATININE 0.6 mg/dL (0.6-1.3); POTASSIUM 3.8 mmol/L (3.5-5.1)
[2018-09-18 07:19] VITALS: BP 110/57
--- NOTE | 2018-09-18 07:26 | NUR ---
PT SLEPT BETTER TONIGHT. INCONTINENT DARK BROWN/BLACK SOFT FORMED BMS OVERNIGHT, JACOB CARE GIVEN. PT TURNED AND REPOSITIONED Q2 HOURS AND PRN FOR SKIN CARE AND COMFORT. SACRUM EXCORIATED, JACOB CARE WITH BARRIER CREAM AND REPOSITIONING. DNR. O2 2L. RENATA MIDLINE. AM LABS DRAWN. TAKES MEDS CRUSHED IN PUDDING WITHOUT DIFFICULTY. CALL LITE IN EASY REACH, BED ALARM ON FOR SAFETY. BOOT ON BLE FOR SKIN CARE. CBI INFUSING SLOWLY POSADA DRAINING YELLOW URINE.
[2018-09-18 15:20] VITALS: BP 136/82
--- NOTE | 2018-09-18 17:47 | NUR ---
RESUMED CARE OF PATIENT, REPORT RECIEVED FROM SHERWIN VASQUEZ. PT SLEPT MOST OF TIME THIS RN HAS BEEN HERE. PT REPORTS NO PAIN. POSADA IN PLACE. WILL CONTINUE WITH PLAN OF CARE.
[2018-09-18 23:48] VITALS: BP 115/60
--- NOTE | 2018-09-19 04:46 | NUR ---
PT SLEPT WELL OVERNIGHT. TAKING MEDS CRUSHED WITH PUDDING. O2 2L NC. RADHA MIDLINE SL. BOOTS ON BLE. BEDBATH GIVEN AT HS. POSADA DRAINING YELLOW URINE. JACOB CARE GIVEN AND BARRIER CREAM APPLIED TO BUTTOCKS. PT TURNED AND REPOSITIONED Q2 HOURS AND PRN FOR SKIN CARE AND COMFORT. DNR. POSSIBLE DC BACK TO [facility].
[2018-09-19 08:00] VITALS: BP 125/57
[2018-09-19] MEDS ORDERED: BACTRIM DS TAB1 EACH PO (11:48)
--- NOTE | 2018-09-19 13:40 | NUR ---
Pt to dc today home to [facility]. JESSICA called and spoke with Cheri in admissions, scheduled transportation for 15:00 and SW faxed needed referral info along with dc orders and med list to [facility] attn admissions. JESSICA called and left a detailed message with pt son to inform of dc plan. Pt nurse aware, chart is copied. [facility] [phone] fax [phone]
[2018-09-19 16:10] VITALS: BP 114/55
--- NOTE | 2018-09-19 16:23 | NUR ---
DISCHARGE NOTE - REMOVED L MIDLINE. CHART COPIED AND SENT WITH WC ASSEMBLER FLEXIBLE LEADS. REPORT CALLED TO ABIGAIL DURÁN RN. NO QUESTIONS.
== END 2018-09-19 16:24 | DRG 70 ==
LOC: M.ERS 04:21 → M.3W 06:02 → M.TBA-ER 06:02 → M.3W 08:56
PROVIDERS: Emergency Medicine; Internal Medicine; ADMIT Internal Medicine
PROC: 30233N1 Transfusion of Nonautologous Red Blood Cells into Peripheral Vein, Percutaneous Approach (ICD-10-PCS; principal; 2018-09-15)
DX: G93.41 Metabolic encephalopathy (principal); E43 Unspecified severe protein-calorie malnutrition; R65.11 Systemic inflammatory response syndrome (SIRS) of non-infectious origin with acute organ dysfunction; I42.9 Cardiomyopathy, unspecified; D62 Acute posthemorrhagic anemia; Z68.1 Body mass index [BMI] 19.9 or less, adult; N30.81 Other cystitis with hematuria; K21.9 Gastro-esophageal reflux disease without esophagitis; N20.0 Calculus of kidney; B96.89 Other specified bacterial agents as the cause of diseases classified elsewhere; F32.9 Major depressive disorder, single episode, unspecified; I50.9 Heart failure, unspecified; M06.9 Rheumatoid arthritis, unspecified; R31.0 Gross hematuria; F03.90 Unspecified dementia, unspecified severity, without behavioral disturbance, psychotic disturbance, mood disturbance, and anxiety; N32.9 Bladder disorder, unspecified; E86.0 Dehydration; Z85.72 Personal history of non-Hodgkin lymphomas; Z88.8 Allergy status to other drugs, medicaments and biological substances; Z91.048 Other nonmedicinal substance allergy status; Z86.73 Personal history of transient ischemic attack (TIA), and cerebral infarction without residual deficits; Z87.442 Personal history of urinary calculi; Z90.710 Acquired absence of both cervix and uterus; Z98.41 Cataract extraction status, right eye; Z98.42 Cataract extraction status, left eye; Z91.041 Radiographic dye allergy status; Z88.0 Allergy status to penicillin